=== PATIENT | male | born 1975 | race Caucasian/White ===

== ENCOUNTER 2017-06-28 18:23 | Inpatient (IN) | payer OTHER ==
[~2017-06-28] VITALS: Ht 182.9 cm; Wt 166.3 kg
[~2017-06-28 18:23] MED LIST: CEPH500C2 PO; KPP/750 PO; MULT-506 PO
[2017-06-28] MEDS ORDERED: ONDANSETRON INJ 2 MG/ML 2 ML VIAL IV STA (18:25)
[2017-06-28] MEDS ORDERED: CEFTRIAXONE SOD INJ 1 GM ADDVIAL IV STA (18:25)
[2017-06-28] MEDS ORDERED: VANCOMYCIN 1GM/270ML NSS IV STA (18:25)
[2017-06-28] MEDS ORDERED: HYDROmorphone INJ 1 MG/ML SYR IV STA (18:25)
[2017-06-28] MEDS ORDERED: KETOROLAC TROMETHAMINE 30 MG/ML VIAL IV STA (18:25)
[2017-06-28 19:23] LABS: BASO % 0.2 %; BASO ABS # 0.02 K/uL (0-0.2); COMPLETE YES; EOS % 1.8 %; HEMATOCRIT 46.2 % (42-52); IG% 0.3 %; LYMPH % 17.8 %; LYMPH ABS # 2.06 K/uL (1.2-3.4); MEAN CELL VOLUME 88.8 fL (80-100); MEAN CORPUSCULAR HEMOGLOBIN 30.8 pg (25-34); MEAN CORPUSCULAR HGB CONC 34.6 g/dl (32-36); MEAN PLATELET VOLUME 9.5 fL (7.4-10.4); MONO % 8.4 %; NEUT % 71.5 %; PLATELET COUNT 196 K/uL (130-400); WHITE BLOOD COUNT 11.55 K/uL (4.8-10.8)
[2017-06-28 19:23] LABS: ISTAT CREATININE 1.2 mg/dl (0.6-1.3); ISTAT HEMOGLOBIN 16.7 g/dl (14.0-18.0); ISTAT IONIZED CALCIUM 1.13 mmol/l (1.12-1.32)
[2017-06-28] MEDS ORDERED: OPTIRAY 320 IV PRN (19:30)
[2017-06-28 19:46] LABS: BUN/CREATININE RATIO 13.5 (10-20); CALCIUM 8.9 mg/dl (8.5-10.1); CREATININE 1.22 mg/dl (0.60-1.40); POTASSIUM 3.7 mmol/L (3.5-5.1)
--- NOTE | 2017-06-28 19:56 | EMERGENCY ROOM VISIT NOTE ---
History Report prepared by Alejandro: Mone Abreu Under the Supervision of: Dr. Milan Sierra M.D. First contact with patient: 18:25 Chief Complaint: LEG PAIN,LEG INJURY Stated Complaint: LEG PAIN History of Present Illness The patient is a 42 year old male who presents to the Emergency Room with complaints of worsening leg pain starting 2 days ago. The patient states that he was seen in the ED 2 days ago and was started on Keflex. The patient complains of that it has moved from his calf into his thigh. He notes that that pain is worse while walking. The patient states that it is swelling and is warm to the touch. He reports that it is the absolute worse when he touches it. The patient complains of a rash. Source of History: patient Onset: 2 days ago Position: leg Quality: other (swollen) Timing: worsening Modifying Factors (Worsening): other (walking) Associated Symptoms: + rash Review of Systems See HPI for pertinent positives & negatives. A total of 10 systems reviewed and were otherwise negative. Past Medical & Surgical Medical Problems: (1) High cholesterol (2) Seizure disorder (3) Superficial thrombophlebitis Family History Heart disease Hypertension Social History Smoking Status: Never Smoker Drug Use: none Marital Status: Housing Status: lives with family Occupation Status: employed Current/Historical Medications Scheduled Cephalexin Monohydrate (Keflex), 500 MG PO QID Levetiracetam (Keppra), 750 MG PO BID Multivitamin (Multivitamin), 1 TAB PO DAILY Allergies Coded Allergies: Phenytoin (Verified Allergy, Intermediate, HIVES, 06/28/17) Amoxicillin (Verified Allergy, Mild, unsure, 06/28/17) Erythromycin (Verified Allergy, Unknown, hives, 06/28/17) Sulfa Antibiotics (Verified Allergy, Unknown, hives, 06/28/17) Zonisamide (Unverified Allergy, Unknown, HIVES, 06/28/17) Physical Exam Vital Signs Date Time Temp Pulse Resp B/P (MAP) Pulse Ox O2 Delivery O2 Flow Rate FiO2 06/28/17 21:40 Room Air 06/28/17 21:19 86 18 113/65 95 Room Air 06/28/17 20:11 93 16 133/77 94 Room Air 06/28/17 19:17 100 06/28/17 18:41 36.7 100 20 140/86 94 Room Air Physical Exam GENERAL: Patient is a healthy-appearing well-nourished HEAD: Normocephalic atraumatic EYES: Ocular movements intact pupils equal and react to light OROPHARYNX mucous membranes are moist no exudates present no erythema or edema present NECK: Supple no nuchal rigidity CHEST: Good equal expansion LUNGS: Clear and equal to auscultation CARDIAC: Normal S1 and S2 ABDOMEN: Soft nontender no guarding BACK: No CVA tenderness EXTREMITIES: No pain upon palpation normal muscle strength in all groups no clubbing or cyanosis. Area of cellulitis extending up the left medial aspect of the thigh. NEURO: Patient is following commands and answering questions appropriately. Alert and oriented x3 Cranial Nerves 2-12 grossly intact Medical Decision & Procedures ER Provider Diagnostic Interpretation: Radiology results as stated below per my review and radiologist interpretation: CHEST CTA for PULMONARY ARTERIES CT DOSE: 717.52 mGy.cm HISTORY: Hypoxia. Tachycardia. TECHNIQUE: Multiaxial CT images of the chest were performed following the intravenous administration of contrast to evaluate the pulmonary arteries. Maximal intensity projection images were also obtained. A dose lowering technique was utilized adhering to the principles of ALARA. COMPARISON STUDY: Chest 06/26/2017. FINDINGS: There is a normal caliber thoracic aorta with no evidence for dissection. Suboptimal opacification of the bilateral lower lobe segmental and subsegmental pulmonary arteries. However, no definite evidence for filling defects to suggest pulmonary embolus. Hepatic steatosis. The visualized spleen and adrenal glands are unremarkable. No mediastinal or hilar lymphadenopathy. The central airways are patent. No focal lung consolidations to suggest pneumonia. Mild nodular thickening along the right major fissure on images 139 through 135. IMPRESSION: No definite evidence for pulmonary embolus. Electronically signed by: Eber Moulton M.D. 06/28/2017 8:25 PM Dictated Date/Time: 06/28/2017 8:13 PM LEFT LOWER EXTREMITY VENOUS DOPPLER HISTORY: Left leg swelling. COMPARISON STUDY: Left leg venous Doppler 06/26/2017. FINDINGS: No change in the thrombosis throughout the greater saphenous vein. No DVT identified within the left lower extremity. IMPRESSION: No DVT within the left lower extremity. No change in the thrombosed greater saphenous vein. Electronically signed by: Eber Moulton M.D. 06/28/2017 8:13 PM Dictated Date/Time: 06/28/2017 8:11 PM Laboratory Results Test 06/28/17 18:54 06/28/17 19:07 06/28/17 19:08 Immature Granulocyte % (Auto) 0.3 % White Blood Count 11.55 K/uL (4.8-10.8) Red Blood Count 5.20 M/uL (4.7-6.1) Hemoglobin 16.0 g/dL (14.0-18.0) Hematocrit 46.2 % (42-52) Mean Corpuscular Volume 88.8 fL (80-100) Mean Corpuscular Hemoglobin 30.8 pg (25-34) Mean Corpuscular Hemoglobin Concent 34.6 g/dl (32-36) Platelet Count 196 K/uL (130-400) Mean Platelet Volume 9.5 fL (7.4-10.4) Neutrophils (%) (Auto) 71.5 % Lymphocytes (%) (Auto) 17.8 % Monocytes (%) (Auto) 8.4 % Eosinophils (%) (Auto) 1.8 % Basophils (%) (Auto) 0.2 % Neutrophils # (Auto) 8.26 K/uL (1.4-6.5) Lymphocytes # (Auto) 2.06 K/uL (1.2-3.4) Monocytes # (Auto) 0.97 K/uL (0.11-0.59) Eosinophils # (Auto) 0.21 K/uL (0-0.5) Basophils # (Auto) 0.02 K/uL (0-0.2) Immature Granulocyte # (Auto) 0.03 K/uL (0.00-0.02) Bedside D-Dimer > 450 ng/mlFEU (0-450) Bedside Hemoglobin 16.7 g/dl (14.0-18.0) Bedside Hematocrit 49 % (42-52) Bedside Sodium 139 mEq/L (135-144) Bedside Potassium 3.8 mEq/L (3.3-5.0) Bedside Chloride 101 mEq/L (101-112) Bedside Total CO2 27 mEq/l (24-31) Bedside Blood Urea Nitrogen 18 mg/dl (7-18) Bedside Creatinine 1.2 mg/dl (0.6-1.3) Bedside Glucose (other) 90 mg/dl (70-99) Bedside Ionized Calcium (Juan) 1.13 mmol/l (1.12-1.32) Labs reviewed by ED physician. Medications Administered Medications (Trade) Dose Ordered Sig/Julien Route Start Time Stop Time Status Last Admin Dose Admin Ceftriaxone Sodium (Rocephin Inj) 1 gm NOW STAT IV 06/28/17 18:25 06/28/17 18:29 DC 06/28/17 19:07 1 GM Vancomycin HCl (Vancomycin 1gm/ 270ml Nss) 1 gm NOW STAT IV 06/28/17 18:25 06/28/17 18:29 DC 06/28/17 20:10 1 GM Ketorolac Tromethamine (Toradol Inj) 30 mg NOW STAT IV 06/28/17 18:25 06/28/17 18:29 DC 06/28/17 19:07 30 MG Ondansetron HCl (Zofran Inj) 4 mg NOW STAT IV 06/28/17 18:25 06/28/17 18:29 DC 06/28/17 19:07 4 MG Hydromorphone HCl (Dilaudid Inj) 1 mg NOW STAT IV 06/28/17 18:25 06/28/17 18:29 DC 06/28/17 19:25 1 MG ECG Indication: tachycardia Rate (beats per minute): 103 Rhythm: sinus tachycardia Findings: no acute ischemic change, no ectopy ED Course 1823: Past medical records reviewed. The patient was evaluated in room B7. A complete history and physical examination was performed. 1824: Ordered Dilaudid Inj 1 mg IV, Zofran Inj 4 mg IV, Toradol Inj 30 mg IV, Vancomycin HCl 1 gm IV, Rocephin Inj 1 gm IV. 2030: I reevaluated the patient and he is resting comfortably. 2031: I discussed the patient's case with Dr. Hay, he has agreed to evaluate the patient for further management and care. Medical Decision Etiologies such as cellulitis, abscess, MRSA infection, DVT, necrotizing fasciitis, dermatitis, drug eruption, as well as others were entertained. This is a 42-year-old male who presents emergency department complaining of increasing leg pain. Patient was recently diagnosed with cellulitis and was started on Keflex however the rash has remarkably spread. Patient also has a history of thrombophlebitis. For this reason an IV was established, the patient given Toradol, Dilaudid. He was hydrated with oral fluids due to a shortage of normal saline solution. He was started on Rocephin and vancomycin. Repeat examination revealed improvement the patient's pain. Patient was sent for an ultrasound which did not show any evidence of DVT. In addition the patient was sent for CAT scan of the chest which did not show any evidence of a blood clot. Based on these findings along with the fact that the patient's white blood count cell count dramatically increased I felt he should be admitted to the hospital. I did discuss the case with the hospitalist service who agreed to admit the patient. Patient was in agreement with the treatment plan. Medication Reconcilliation Current Medication List: was personally reviewed by me Blood Pressure Screening Patient's blood pressure: Normal blood pressure Blood pressure disposition: Did not require urgent referral Consults Time Called: 2027 Consulting Physician: Dr. Hay Returned Call: 2031 I discussed the patient's case with Dr. Hay, he has agreed to evaluate the patient for further management and care. Impression Primary Impression: Cellulitis Scribe Attestation The scribe's documentation has been prepared under my direction and personally reviewed by me in its entirety. I confirm that the note above accurately reflects all work, treatment, procedures, and medical decision making performed by me. Departure Information Dispostion Being Evaluated By Hospitalist Referrals Lanre Mayorga M.D. (PCP) Patient Instructions My [facility] Problem Qualifiers Primary Impression: Cellulitis Site of cellulitis: extremity Site of cellulitis of extremity: lower extremity Laterality: left Qualified Codes: L03.116 - Cellulitis of left lower limb
--- NOTE | 2017-06-28 20:14 | DIAGNOSTIC IMAGING REPORT ---
LEFT LOWER EXTREMITY VENOUS DOPPLER HISTORY: Left leg swelling. COMPARISON STUDY: Left leg venous Doppler 06/26/2017. FINDINGS: No change in the thrombosis throughout the greater saphenous vein. No DVT identified within the left lower extremity. IMPRESSION: No DVT within the left lower extremity. No change in the thrombosed greater saphenous vein. Electronically signed by: Eber Moulton M.D. 06/28/2017 8:13 PM Dictated Date/Time: 06/28/2017 8:11 PM
--- NOTE | 2017-06-28 20:27 | DIAGNOSTIC IMAGING REPORT ---
CHEST CTA for PULMONARY ARTERIES CT DOSE: 717.52 mGy.cm HISTORY: Hypoxia. Tachycardia. TECHNIQUE: Multiaxial CT images of the chest were performed following the intravenous administration of contrast to evaluate the pulmonary arteries. Maximal intensity projection images were also obtained. A dose lowering technique was utilized adhering to the principles of ALARA. COMPARISON STUDY: Chest 06/26/2017. FINDINGS: There is a normal caliber thoracic aorta with no evidence for dissection. Suboptimal opacification of the bilateral lower lobe segmental and subsegmental pulmonary arteries. However, no definite evidence for filling defects to suggest pulmonary embolus. Hepatic steatosis. The visualized spleen and adrenal glands are unremarkable. No mediastinal or hilar lymphadenopathy. The central airways are patent. No focal lung consolidations to suggest pneumonia. Mild nodular thickening along the right major fissure on images 139 through 135. IMPRESSION: No definite evidence for pulmonary embolus. Electronically signed by: Eber Moulton M.D. 06/28/2017 8:25 PM Dictated Date/Time: 06/28/2017 8:13 PM
[2017-06-28 21:40] VITALS: Ht 182.9 cm; Wt 166.3 kg
[2017-06-28] MEDS ORDERED: ALUMINUM/MAGNESIUM/SIMETH (MAALOX MAX) 30 ML UDC PO PRN (22:00)
[2017-06-28] MEDS ORDERED: ACETAMINOPHEN 325 MG TAB PO PRN (22:00)
[2017-06-28] MEDS ORDERED: VANCOMYCIN CONSULT ACTIVE PRN (22:15)
[2017-06-28] MEDS ORDERED: KETOROLAC TROMETHAMINE 30 MG/ML VIAL IV PRN (22:45)
--- NOTE | 2017-06-28 22:45 | History and Physical ---
History & Physical Date & Time of Service: Jun 28, 2017 at 22:21 Chief Complaint: Leg Pain Primary Care Physician: Lanre Mayorga M.D. History of Present Illness Source: patient, family, hospital records This is a 42 year old male with a PMH of seizure disorder, varicose veins s/p stripping, recurrent phlebitis in the lower extremities presents secondary to severe LLE pain in the upper, medial thigh - he was at [facility] at 06/25 and 06/26 - at that time was diagnosed with superficial thrombophlebitis and cellulitis and was sent home with Keflex. States that the pain and the redness worsened. It has now spread throughout his medial thigh and there is significant pain to touch. Denies fevers/chills, denies nausea/vomiting, denies all other symptoms. Past Medical/Surgical History Medical Problems: (1) Seizure disorder Status: Chronic (2) Superficial thrombophlebitis Status: Chronic Family History Heart disease Hypertension Social History Smoking Status: Never Smoker Drug Use: none Marital Status: Occupational Status: employed Multi-Drug Resistant Organisms History of MDRO: No Allergies Coded Allergies: Phenytoin (Verified Allergy, Intermediate, HIVES, 06/28/17) Amoxicillin (Verified Allergy, Mild, unsure, 06/28/17) Erythromycin (Verified Allergy, Unknown, hives, 06/28/17) Sulfa Antibiotics (Verified Allergy, Unknown, hives, 06/28/17) Zonisamide (Unverified Allergy, Unknown, HIVES, 06/28/17) Home Medications Scheduled Cephalexin Monohydrate (Keflex), 500 MG PO QID Levetiracetam (Keppra), 750 MG PO BID Multivitamin (Multivitamin), 1 TAB PO DAILY Review of Systems Constitutional: No fever, No chills Eyes: No worsening of vision ENT: No hearing loss Respiratory: No cough, No sputum, No wheezing, No shortness of breath, No dyspnea on exertion, No dyspnea at rest, No hemoptysis Cardiovascular: No chest pain, No orthopnea Abdomen: No pain, No nausea, No vomiting, No diarrhea, No constipation, No GI bleeding Musculoskeletal: No joint pain, No muscle pain Genitourinary - Male: No hematuria, No dysuria, No urinary frequency, No urinary urgency Neurologic: No memory loss, No paralysis, No weakness, No numbness/tingling, No vertigo Psychiatric: No insomnia Endocrine: No fatigue Hematologic / Lymphatic: No abnormal bleeding/bruising Integumentary: + new/changing skin lesions (redness spread to thigh) Allergic / Immunologic: No environmental allergies, No seasonal allergies Physical Exam Vital Signs Date Time Temp Pulse Resp B/P (MAP) Pulse Ox O2 Delivery O2 Flow Rate FiO2 06/28/17 21:40 Room Air 06/28/17 21:19 86 18 113/65 95 Room Air 06/28/17 20:11 93 16 133/77 94 Room Air 06/28/17 19:17 100 06/28/17 18:41 36.7 100 20 140/86 94 Room Air General Appearance: WD/WN, no apparent distress, + obese Head: normocephalic, atraumatic Eyes: normal inspection ENT: hearing grossly normal Respiratory/Chest: chest non-tender, lungs clear, normal breath sounds, no respiratory distress, no accessory muscle use Cardiovascular: regular rate, rhythm, no edema, no murmur Abdomen/GI: normal bowel sounds, non tender, soft, no organomegaly Back: no CVA tenderness, no muscle spasm Extremities/Musculoskelatal: + swelling, + pertinent finding (+swelling, significant erythema, warmth to touch, tenderness to palpation) Neurologic/Psych: no motor/sensory deficits, alert, normal mood/affect Skin: normal color Lymphatic: no adenopathy Diagnostics Laboratory Results Results Past 24 Hours Test 06/28/17 18:54 06/28/17 19:07 06/28/17 19:08 Range/Units White Blood Count 11.55 4.8-10.8 K/uL Red Blood Count 5.20 4.7-6.1 M/uL Hemoglobin 16.0 14.0-18.0 g/dL Hematocrit 46.2 42-52 % Mean Corpuscular Volume 88.8 80-100 fL Mean Corpuscular Hemoglobin 30.8 25-34 pg Mean Corpuscular Hemoglobin Concent 34.6 32-36 g/dl Platelet Count 196 130-400 K/uL Mean Platelet Volume 9.5 7.4-10.4 fL Neutrophils (%) (Auto) 71.5 % Lymphocytes (%) (Auto) 17.8 % Monocytes (%) (Auto) 8.4 % Eosinophils (%) (Auto) 1.8 % Basophils (%) (Auto) 0.2 % Neutrophils # (Auto) 8.26 1.4-6.5 K/uL Lymphocytes # (Auto) 2.06 1.2-3.4 K/uL Monocytes # (Auto) 0.97 0.11-0.59 K/uL Eosinophils # (Auto) 0.21 0-0.5 K/uL Basophils # (Auto) 0.02 0-0.2 K/uL RDW Standard Deviation 42.3 36.4-46.3 fL RDW Coefficient of Variation 13.1 11.5-14.5 % Immature Granulocyte % (Auto) 0.3 % Immature Granulocyte # (Auto) 0.03 0.00-0.02 K/uL Sodium Level 138 136-145 mmol/L Potassium Level 3.7 3.5-5.1 mmol/L Chloride Level 103 98-107 mmol/L Carbon Dioxide Level 29 21-32 mmol/L Anion Gap 6.0 16.0 16-25 mmol/L Blood Urea Nitrogen 17 7-18 mg/dl Creatinine 1.22 0.60-1.40 mg/dl Est Creatinine Clear Calc Drug Dose 125.8 ml/min Estimated GFR () 84.2 Estimated GFR (Non- 72.7 BUN/Creatinine Ratio 13.5 10-20 Random Glucose 86 70-99 mg/dl Calcium Level 8.9 8.5-10.1 mg/dl Bedside D-Dimer > 450 0-450 ng/mlFEU Bedside Hemoglobin 16.7 14.0-18.0 g/dl Bedside Hematocrit 49 42-52 % Bedside Sodium 139 135-144 mEq/L Bedside Potassium 3.8 3.3-5.0 mEq/L Bedside Chloride 101 101-112 mEq/L Bedside Total CO2 27 24-31 mEq/l Bedside Blood Urea Nitrogen 18 7-18 mg/dl Bedside Creatinine 1.2 0.6-1.3 mg/dl Bedside Glucose (other) 90 70-99 mg/dl Bedside Ionized Calcium (Juan) 1.13 1.12-1.32 mmol/l Microbiology Results 06/28/17 Blood Culture, Received Pending 06/28/17 Blood Culture, Received Pending Diagnostic Radiology LEFT LOWER EXTREMITY VENOUS DOPPLER HISTORY: Left leg swelling. COMPARISON STUDY: Left leg venous Doppler 06/26/2017. FINDINGS: No change in the thrombosis throughout the greater saphenous vein. No DVT identified within the left lower extremity. IMPRESSION: No DVT within the left lower extremity. No change in the thrombosed greater saphenous vein. CHEST CTA for PULMONARY ARTERIES CT DOSE: 717.52 mGy.cm HISTORY: Hypoxia. Tachycardia. TECHNIQUE: Multiaxial CT images of the chest were performed following the intravenous administration of contrast to evaluate the pulmonary arteries. Maximal intensity projection images were also obtained. A dose lowering technique was utilized adhering to the principles of ALARA. COMPARISON STUDY: Chest 06/26/2017. FINDINGS: There is a normal caliber thoracic aorta with no evidence for dissection. Suboptimal opacification of the bilateral lower lobe segmental and subsegmental pulmonary arteries. However, no definite evidence for filling defects to suggest pulmonary embolus. Hepatic steatosis. The visualized spleen and adrenal glands are unremarkable. No mediastinal or hilar lymphadenopathy. The central airways are patent. No focal lung consolidations to suggest pneumonia. Mild nodular thickening along the right major fissure on images 139 through 135. IMPRESSION: No definite evidence for pulmonary embolus. EKG Sinus tachycardia Otherwise normal ECG Impression Assessment and Plan This is a 42 year old male with a PMH of seizure disorder, varicose veins s/p stripping, recurrent phlebitis in the lower extremities presents with acute superficial thrombophlebitis and cellulitis Acute Superficial Thrombophlebitis Cellulitis LLE U/S - superficial thrombophlebitis in the greater saphenous vein mild elevation in WBC was on Keflex since 06/25 but failed outpatient therapy will start IV Vancomycin Toradol PRN for pain monitor status for now, no anticoagulation needed; may need repeat U/S in 7-10 days Hx. of Seizure Disorder continue Keppra DVT ppx Lovenox FULL CODE Advanced Directives Existing Living Will: No Existing Power of Senior Software Project Manager: No VTE Prophylaxis VTE Risk Assessment Done? Y/N: Yes Risk Level: Moderate
[2017-06-28 23:25] VITALS: BP 150/92; PULSE 96; TEMP 36.8; O2SAT 90
[2017-06-29] MEDS ORDERED: VANCOMYCIN INJ 2,000 MG in SODIUM CHLORIDE 0.9% 500ML 500 ML IV ONE (03:00)
[2017-06-29 06:22] LABS: HEMATOCRIT 40.7 % (42-52); MEAN CORPUSCULAR HEMOGLOBIN 31.4 pg (25-34); MEAN CORPUSCULAR HGB CONC 34.9 g/dl (32-36); MEAN PLATELET VOLUME 9.6 fL (7.4-10.4); PLATELET COUNT 162 K/uL (130-400); RED BLOOD COUNT 4.52 M/uL (4.7-6.1); WHITE BLOOD COUNT 8.81 K/uL (4.8-10.8)
[2017-06-29 07:07] LABS: BUN/CREATININE RATIO 18.8 (10-20); CREATININE 1.2 mg/dl (0.60-1.40); POTASSIUM 4.4 mmol/L (3.5-5.1)
[2017-06-29] MEDS ORDERED: LEVETIRACETAM 250 MG TAB PO SCH (08:00)
[2017-06-29 08:08] VITALS: BP 157/84; PULSE 83; TEMP 36.6; O2SAT 94
[2017-06-29 08:41] LABS: PROTHROMBIN TIME (PATIENT) 10.2 SECONDS (9.0-12.0)
--- NOTE | 2017-06-29 10:17 | Pharmacy Progress Note ---
Pharmacy Abx Dose Short Note Date of Service Jun 29, 2017. Assessment & Plan Assessment 42 year old male receiving VANC-IV for treatment of thigh cellulitis. Failed out-pt Keflex (since ED visit 06/25). PMH: recurrent phlebitis * Day # 1 of antimicrobial therapy. Plan Vancomycin * Pt is morbidly obese (BMI 49.5), will need to utilize decreased mg/kg dosing to offset potential to accumulate over time. * Estimated p'kinetics: Ke~0.104hr-1, T1/2~7 hours * "Loading dose": Vanc-IV 1 gram + 2 gram (~18mg/kg) * Maintenance Dose: VANC 1750mg (~10mg/kg) IV every 10 hours * Goal trough level: 10 to 15 mcg/mL, pending C&S * VANC Trough level prior to 06/30 0800 dose Pharmacy will continue to follow and will adjust dose/frequency as necessary. Thank you.
[2017-06-29] MEDS: ENOXAPARIN 40 MG/0.4 ML SYR SQ SCH ×2 (11:38→12:19)
[2017-06-29] MEDS: VANCOMYCIN INJ 1,750 MG in SODIUM CHLORIDE 0.9% 500ML 500 ML IV SCH ×2 (12:17→22:03)
--- NOTE | 2017-06-29 14:58 | Progress Note ---
Internal Med Progress Note Date of Service: Jun 29, 2017. Provider Documentation: SUBJECTIVE: Seen and examined at bedside Persistent LLE thigh pain LLE erythema improving Denies chest pain, SOB, abd pain, dizziness Family at bedside No other complaints OBJECTIVE: Vital Signs-as noted below Physical Exam: General Appearance:Obese, no apparent distress Head: normocephalic, Atraumatic Eyes: normal inspection, EOMI, PERRL Neck: supple, Trachea midline Respiratory/Chest: Normal breath sounds, CTA Cardiovascular: S1, S2, No murmur Abdomen/GI:Soft, Non tender, Bowel sounds present Extremities/Musculoskelatal:normal inspection, L thigh erythema, tender Neurologic/Psych:AAOX3, grossly no focal neurological deficits Skin: normal color, warm Lab data as noted below. ASSESSMENT & PLAN: Patient is a 42 yr male with a PMH of seizure disorder, varicose veins s/p stripping, recurrent phlebitis in the lower extremities presents with acute superficial thrombophlebitis and cellulitis Acute Superficial Thrombophlebitis Cellulitis H/O Varicose vein stripping and recurrent phlebitis since 2011 LLE U/S: No DVT within the left lower extremity. No change in the thrombosed greater saphenous vein. Leukocytosis normalized Was on Keflex since 06/25 but failed outpatient therapy Continue IV Vancomycin Toradol PRN for pain Blood cultures: Pending monitor leg circumference, erythema Discussed with Dr. andrew (Oncology) No plan for anticoagulation for now Plan to repeat Venous Doppler in 7-10 days Hx. of Seizure Disorder continue Keppra Stable DVT px Lovenox Code Status: FULL CODE Disposition: Plan to discharge home when stable Vital Signs: Date Time Temp Pulse Resp B/P (MAP) Pulse Ox O2 Delivery O2 Flow Rate FiO2 06/29/17 15:00 36.3 89 22 135/86 (102) 95 Room Air 06/29/17 11:45 Room Air 06/29/17 09:08 Room Air 06/29/17 08:08 36.6 83 22 157/84 (108) 94 Room Air 06/29/17 00:00 Room Air 06/28/17 23:25 36.8 96 18 150/92 (111) 90 Room Air 06/28/17 22:43 94 18 125/64 91 Room Air 06/28/17 21:40 Room Air 06/28/17 21:19 86 18 113/65 95 Room Air 06/28/17 20:11 93 16 133/77 94 Room Air 06/28/17 19:17 100 06/28/17 18:41 36.7 100 20 140/86 94 Room Air Lab Results: Results Past 24 Hours Test 06/28/17 18:54 06/28/17 19:07 06/28/17 19:08 06/29/17 06:13 Range/Units White Blood Count 11.55 8.81 4.8-10.8 K/uL Red Blood Count 5.20 4.52 4.7-6.1 M/uL Hemoglobin 16.0 14.2 14.0-18.0 g/dL Hematocrit 46.2 40.7 42-52 % Mean Corpuscular Volume 88.8 90.0 80-100 fL Mean Corpuscular Hemoglobin 30.8 31.4 25-34 pg Mean Corpuscular Hemoglobin Concent 34.6 34.9 32-36 g/dl Platelet Count 196 162 130-400 K/uL Mean Platelet Volume 9.5 9.6 7.4-10.4 fL Neutrophils (%) (Auto) 71.5 % Lymphocytes (%) (Auto) 17.8 % Monocytes (%) (Auto) 8.4 % Eosinophils (%) (Auto) 1.8 % Basophils (%) (Auto) 0.2 % Neutrophils # (Auto) 8.26 1.4-6.5 K/uL Lymphocytes # (Auto) 2.06 1.2-3.4 K/uL Monocytes # (Auto) 0.97 0.11-0.59 K/uL Eosinophils # (Auto) 0.21 0-0.5 K/uL Basophils # (Auto) 0.02 0-0.2 K/uL RDW Standard Deviation 42.3 42.7 36.4-46.3 fL RDW Coefficient of Variation 13.1 13.0 11.5-14.5 % Immature Granulocyte % (Auto) 0.3 % Immature Granulocyte # (Auto) 0.03 0.00-0.02 K/uL Sodium Level 138 141 136-145 mmol/L Potassium Level 3.7 4.4 3.5-5.1 mmol/L Chloride Level 103 106 98-107 mmol/L Carbon Dioxide Level 29 28 21-32 mmol/L Anion Gap 6.0 16.0 7.0 3-11 mmol/L Blood Urea Nitrogen 17 23 7-18 mg/dl Creatinine 1.22 1.20 0.60-1.40 mg/dl Est Creatinine Clear Calc Drug Dose 125.8 127.9 ml/min Estimated GFR () 84.2 85.9 Estimated GFR (Non- 72.7 74.1 BUN/Creatinine Ratio 13.5 18.8 10-20 Random Glucose 86 111 70-99 mg/dl Calcium Level 8.9 8.0 8.5-10.1 mg/dl Bedside D-Dimer > 450 0-450 ng/mlFEU Bedside Hemoglobin 16.7 14.0-18.0 g/dl Bedside Hematocrit 49 42-52 % Bedside Sodium 139 135-144 mEq/L Bedside Potassium 3.8 3.3-5.0 mEq/L Bedside Chloride 101 101-112 mEq/L Bedside Total CO2 27 24-31 mEq/l Bedside Blood Urea Nitrogen 18 7-18 mg/dl Bedside Creatinine 1.2 0.6-1.3 mg/dl Bedside Glucose (other) 90 70-99 mg/dl Bedside Ionized Calcium (Juan) 1.13 1.12-1.32 mmol/l Test 06/29/17 08:07 Range/Units Prothrombin Time 10.2 9.0-12.0 SECONDS Prothromb Time International Ratio 1.0 0.9-1.1 Microbiology Results 06/28/17 Blood Culture, Received Pending 06/28/17 Blood Culture, Received Pending
[2017-06-29 15:00] VITALS: BP 135/86; PULSE 89; TEMP 36.3; O2SAT 95
[2017-06-29 23:00] VITALS: BP 123/76; PULSE 84; TEMP 36.7; O2SAT 95
[2017-06-29] MEDS: LEVETIRACETAM 750 MG PO SCH (23:27)
[2017-06-30] MEDS ORDERED: VANCOMYCIN TROUGH ONE (07:30)
[2017-06-30 07:53] LABS: HEMATOCRIT 44.6 % (42-52); MEAN CELL VOLUME 89.4 fL (80-100); MEAN CORPUSCULAR HEMOGLOBIN 30.9 pg (25-34); MEAN CORPUSCULAR HGB CONC 34.5 g/dl (32-36); MEAN PLATELET VOLUME 9.7 fL (7.4-10.4); PLATELET COUNT 180 K/uL (130-400); RED BLOOD COUNT 4.99 M/uL (4.7-6.1); WHITE BLOOD COUNT 6.88 K/uL (4.8-10.8)
[2017-06-30] MEDS ORDERED: LEVETIRACETAM 750 MG PO SCH (08:00)
[2017-06-30 08:01] VITALS: BP 124/82; PULSE 83; TEMP 36.6; O2SAT 97
[2017-06-30 08:22] LABS: BUN/CREATININE RATIO 15.9 (10-20); CALCIUM 8.4 mg/dl (8.5-10.1); CREATININE 0.96 mg/dl (0.60-1.40); POTASSIUM 4.3 mmol/L (3.5-5.1)
--- NOTE | 2017-06-30 08:43 | Pharmacy Progress Note ---
Pharmacy Abx Dose Short Note Date of Service Jun 30, 2017. Assessment & Plan Today's trough (prior to Css) came back therapeutic at 12.3mcg/mL for cellulitis. Trough was drawn appropriately. Given Mr. Jha's habitus there is a concern for vancomycin accumulation. His renal fxn improved overnight. He is still afebrile, nil leukocytosis. Will continue with current regimen and check trough in a few days. Pharmacy will continue to follow and will adjust dose/frequency as necessary. Thank you.
[2017-06-30] MEDS: VANCOMYCIN INJ 1,750 MG in SODIUM CHLORIDE 0.9% 500ML 500 ML IV SCH ×2 (08:45→17:21)
[2017-06-30 10:41] VITALS: O2SAT 97
[2017-06-30] MEDS: ENOXAPARIN 40 MG/0.4 ML SYR SQ SCH (10:50)
[2017-06-30 11:32] VITALS: BP 141/89; PULSE 73; TEMP 36.5; O2SAT 95
[2017-06-30] MEDS: LEVETIRACETAM 750 MG PO SCH (12:32)
--- NOTE | 2017-06-30 14:56 | Progress Note ---
Internal Med Progress Note Date of Service: Jun 30, 2017. Provider Documentation: SUBJECTIVE: Seen and examined at bedside No change in LLE thigh pain LLE erythema slowly improving Denies chest pain, SOB, abd pain, dizziness Family at bedside No other complaints OBJECTIVE: Vital Signs-as noted below Physical Exam: General Appearance:Obese, no apparent distress Head: normocephalic, Atraumatic Eyes: normal inspection, EOMI, PERRL Neck: supple, Trachea midline Respiratory/Chest: Normal breath sounds, CTA Cardiovascular: S1, S2, No murmur Abdomen/GI:Soft, Non tender, Bowel sounds present Extremities/Musculoskelatal:normal inspection, L thigh erythema, tender Neurologic/Psych:AAOX3, grossly no focal neurological deficits Skin: normal color, warm Lab data as noted below. ASSESSMENT & PLAN: Patient is a 42 yr male with a PMH of seizure disorder, varicose veins s/p stripping, recurrent phlebitis in the lower extremities presents with acute superficial thrombophlebitis and cellulitis Acute Superficial Thrombophlebitis Cellulitis H/O Varicose vein stripping and recurrent phlebitis since 2011 LLE U/S: No DVT within the left lower extremity. No change in the thrombosed greater saphenous vein. Leukocytosis normalized Was on Keflex since 06/25 but failed outpatient therapy Continue IV Vancomycin Toradol PRN for pain Blood cultures: No growth to date monitor leg circumference, erythema Warm compress Discussed with Dr. andrew (Oncology) Discussed with Vascular Surgery: Recommended anticoagulation Start on IV heparin and Coumadin Monitor INR Hx. of Seizure Disorder continue Keppra Stable DVT px Lovenox Code Status: FULL CODE Disposition: Plan to discharge home when stable Vital Signs: Date Time Temp Pulse Resp B/P (MAP) Pulse Ox O2 Delivery O2 Flow Rate FiO2 06/30/17 15:01 36.6 89 20 161/95 (117) 94 Room Air 06/30/17 11:32 36.5 73 20 141/89 (106) 95 Room Air 06/30/17 10:43 Room Air 06/30/17 10:41 97 Room Air 06/30/17 08:01 36.6 83 20 124/82 (96) 97 Room Air 06/30/17 00:01 Room Air 06/29/17 23:00 36.7 84 20 123/76 (92) 95 Room Air 06/29/17 16:00 Room Air Lab Results: Results Past 24 Hours Test 06/30/17 07:36 Range/Units White Blood Count 6.88 4.8-10.8 K/uL Red Blood Count 4.99 4.7-6.1 M/uL Hemoglobin 15.4 14.0-18.0 g/dL Hematocrit 44.6 42-52 % Mean Corpuscular Volume 89.4 80-100 fL Mean Corpuscular Hemoglobin 30.9 25-34 pg Mean Corpuscular Hemoglobin Concent 34.5 32-36 g/dl RDW Standard Deviation 41.6 36.4-46.3 fL RDW Coefficient of Variation 12.9 11.5-14.5 % Platelet Count 180 130-400 K/uL Mean Platelet Volume 9.7 7.4-10.4 fL Sodium Level 140 136-145 mmol/L Potassium Level 4.3 3.5-5.1 mmol/L Chloride Level 108 98-107 mmol/L Carbon Dioxide Level 28 21-32 mmol/L Anion Gap 4.0 3-11 mmol/L Blood Urea Nitrogen 15 7-18 mg/dl Creatinine 0.96 0.60-1.40 mg/dl Est Creatinine Clear Calc Drug Dose 159.9 ml/min Estimated GFR () 112.5 Estimated GFR (Non- 97.1 BUN/Creatinine Ratio 15.9 10-20 Random Glucose 92 70-99 mg/dl Calcium Level 8.4 8.5-10.1 mg/dl Vancomycin Level Trough 12.3 SEE COMMENT mcg/ml
[2017-06-30 15:01] VITALS: BP 161/95; PULSE 89; TEMP 36.6; O2SAT 94
[2017-06-30] MEDS ORDERED: WARFARIN SOD 5 MG TAB PO SCH (16:00)
[2017-06-30] MEDS ORDERED: HEPARIN IV BOLUS 9,000 UNIT in SYRINGE 0 ML IV ONE (16:45)
[2017-06-30 17:05] LABS: PARTIAL THROMBOPLASTIN RATIO 1.1; PROTHROMBIN TIME (PATIENT) 10.2 SECONDS (9.0-12.0)
[2017-06-30] MEDS: HEPARIN 25000 UNIT/ D5W 500 ML (PHARMACY PREPARED) IV PRN ×2 (17:20)
[2017-06-30 23:38] LABS: PARTIAL THROMBOPLASTIN RATIO 1.6
[2017-06-30 23:46] VITALS: BP 138/80; PULSE 95; TEMP 36.5; O2SAT 96
[2017-07-01] VITALS: O2SAT 97
[2017-07-01] MEDS ORDERED: HEPARIN IV BOLUS 9,000 UNIT in SYRINGE 0 ML IV ONE (00:15)
[2017-07-01] MEDS: LEVETIRACETAM 750 MG PO SCH ×2 (00:25→12:40)
[2017-07-01] MEDS: VANCOMYCIN INJ 1,750 MG in SODIUM CHLORIDE 0.9% 500ML 500 ML IV SCH ×2 (04:12→14:17)
[2017-07-01 06:59] LABS: HEMATOCRIT 42.9 % (42-52); MEAN CELL VOLUME 88.8 fL (80-100); MEAN CORPUSCULAR HEMOGLOBIN 31.1 pg (25-34); MEAN PLATELET VOLUME 9.3 fL (7.4-10.4); PLATELET COUNT 186 K/uL (130-400); RED BLOOD COUNT 4.83 M/uL (4.7-6.1); WHITE BLOOD COUNT 8.51 K/uL (4.8-10.8)
[2017-07-01 07:25] LABS: PARTIAL THROMBOPLASTIN RATIO 2.3
[2017-07-01 07:26] LABS: PARTIAL THROMBOPLASTIN RATIO 2.3; PROTHROMBIN TIME (PATIENT) 10.6 SECONDS (9.0-12.0)
[2017-07-01 07:28] LABS: CREATININE 0.99 mg/dl (0.60-1.40)
[2017-07-01 08:02] VITALS: BP 145/76; PULSE 74; TEMP 36.6; O2SAT 93
--- NOTE | 2017-07-01 14:48 | Progress Note ---
Internal Med Progress Note Date of Service: Jul 01, 2017. Provider Documentation: SUBJECTIVE: Seen and examined at bedside Leg Erythema much improved Leg pain unchanged from yesterday Denies chest pain, SOB, abd pain, dizziness Family at bedside No other complaints OBJECTIVE: Vital Signs-as noted below Physical Exam: General Appearance:Obese, no apparent distress Head: normocephalic, Atraumatic Eyes: normal inspection, EOMI, PERRL Neck: supple, Trachea midline Respiratory/Chest: Normal breath sounds, CTA Cardiovascular: S1, S2, No murmur Abdomen/GI:Soft, Non tender, Bowel sounds present Extremities/Musculoskelatal:normal inspection, L thigh erythema improving, tender Neurologic/Psych:AAOX3, grossly no focal neurological deficits Skin: normal color, warm Lab data as noted below. ASSESSMENT & PLAN: Patient is a 42 yr male with a PMH of seizure disorder, varicose veins s/p stripping, recurrent phlebitis in the lower extremities presents with acute superficial thrombophlebitis and cellulitis Acute Superficial Thrombophlebitis Cellulitis H/O Varicose vein stripping and recurrent phlebitis since 2011 LLE U/S: No DVT within the left lower extremity. No change in the thrombosed greater saphenous vein. Leukocytosis normalized Was on Keflex since 06/25 but failed outpatient therapy Continue IV Vancomycin to complete 5 days of therapy Toradol PRN for pain Blood cultures: No growth to date monitor leg circumference, erythema Warm compress Discussed with Dr. andrew (Oncology) Discussed with Vascular Surgery: Recommended anticoagulation Start on IV heparin and Coumadin Monitor INR:1.0 today Will give 7.5 mg coumadin today Hx. of Seizure Disorder continue Keppra Stable DVT px Lovenox Code Status: FULL CODE Disposition: Plan to discharge home when stable Vital Signs: Date Time Temp Pulse Resp B/P (MAP) Pulse Ox O2 Delivery O2 Flow Rate FiO2 07/01/17 10:14 Room Air 07/01/17 08:02 36.6 74 18 145/76 (99) 93 Room Air 07/01/17 00:00 97 Room Air 06/30/17 23:46 36.5 95 20 138/80 (99) 96 Room Air 06/30/17 20:05 Room Air 06/30/17 15:47 Room Air 06/30/17 15:01 36.6 89 20 161/95 (117) 94 Room Air Lab Results: Results Past 24 Hours Test 06/30/17 16:39 06/30/17 23:15 07/01/17 06:43 Range/Units Prothrombin Time 10.2 10.6 9.0-12.0 SECONDS Prothromb Time International Ratio 1.0 1.0 0.9-1.1 Activated Partial Thromboplast Time 28.8 40.6 60.8 21.0-31.0 SECONDS Partial Thromboplastin Ratio 1.1 1.6 2.3 White Blood Count 8.51 4.8-10.8 K/uL Red Blood Count 4.83 4.7-6.1 M/uL Hemoglobin 15.0 14.0-18.0 g/dL Hematocrit 42.9 42-52 % Mean Corpuscular Volume 88.8 80-100 fL Mean Corpuscular Hemoglobin 31.1 25-34 pg Mean Corpuscular Hemoglobin Concent 35.0 32-36 g/dl RDW Standard Deviation 41.9 36.4-46.3 fL RDW Coefficient of Variation 13.1 11.5-14.5 % Platelet Count 186 130-400 K/uL Mean Platelet Volume 9.3 7.4-10.4 fL Creatinine 0.99 0.60-1.40 mg/dl Est Creatinine Clear Calc Drug Dose 155.5 ml/min Estimated GFR () 108.4 Estimated GFR (Non- 93.6
[2017-07-01] MEDS: HEPARIN 25000 UNIT/ D5W 500 ML (PHARMACY PREPARED) IV PRN ×2 (16:00)
[2017-07-01] MEDS ORDERED: WARFARIN SOD 7.5 MG TAB PO SCH (16:00)
[2017-07-01 16:08] VITALS: BP 172/95; PULSE 100; TEMP 36.5; O2SAT 93
[2017-07-02] VITALS: BP 146/99; PULSE 100; TEMP 36.5; O2SAT 97; O2SAT 99
[2017-07-02] MEDS: LEVETIRACETAM 750 MG PO SCH ×2 (00:52→12:00)
[2017-07-02] MEDS: VANCOMYCIN INJ 1,750 MG in SODIUM CHLORIDE 0.9% 500ML 500 ML IV SCH ×3 (00:52→20:14)
[2017-07-02 07:05] LABS: BASO % 0.3 %; BASO ABS # 0.02 K/uL (0-0.2); COMPLETE YES; HEMATOCRIT 43.1 % (42-52); IG% 0.3 %; LYMPH % 27.4 %; LYMPH ABS # 2.03 K/uL (1.2-3.4); MEAN CELL VOLUME 88.3 fL (80-100); MEAN CORPUSCULAR HEMOGLOBIN 30.9 pg (25-34); MEAN PLATELET VOLUME 9.5 fL (7.4-10.4); MONO % 6.9 %; NEUT % 62.1 %; PLATELET COUNT 194 K/uL (130-400); RED BLOOD COUNT 4.88 M/uL (4.7-6.1)
[2017-07-02 07:15] VITALS: BP 137/92; PULSE 87; TEMP 36.6; O2SAT 95
[2017-07-02 07:29] LABS: PARTIAL THROMBOPLASTIN RATIO 1.9; PROTHROMBIN TIME (PATIENT) 10.7 SECONDS (9.0-12.0)
[2017-07-02 07:40] LABS: BUN/CREATININE RATIO 12.3 (10-20); CALCIUM 8.3 mg/dl (8.5-10.1); CREATININE 0.97 mg/dl (0.60-1.40)
[2017-07-02] MEDS: HEPARIN 25000 UNIT/ D5W 500 ML (PHARMACY PREPARED) IV PRN ×6 (11:58→22:48)
--- NOTE | 2017-07-02 15:13 | Progress Note ---
Internal Med Progress Note Date of Service: Jul 02, 2017. Provider Documentation: SUBJECTIVE: Seen and examined at bedside Leg Erythema, pain improving Denies chest pain, SOB, abd pain, dizziness Family at bedside No other complaints OBJECTIVE: Vital Signs-as noted below Physical Exam: General Appearance:Obese, no apparent distress Head: normocephalic, Atraumatic Eyes: normal inspection, EOMI, PERRL Neck: supple, Trachea midline Respiratory/Chest: Normal breath sounds, CTA Cardiovascular: S1, S2, No murmur Abdomen/GI:Soft, Non tender, Bowel sounds present Extremities/Musculoskelatal:normal inspection, L thigh erythema improving, tender Neurologic/Psych:AAOX3, grossly no focal neurological deficits Skin: normal color, warm Lab data as noted below. ASSESSMENT & PLAN: Patient is a 42 yr male with a PMH of seizure disorder, varicose veins s/p stripping, recurrent phlebitis in the lower extremities presents with acute superficial thrombophlebitis and cellulitis Acute Superficial Thrombophlebitis Cellulitis H/O Varicose vein stripping and recurrent phlebitis since 2011 LLE U/S: No DVT within the left lower extremity. No change in the thrombosed greater saphenous vein. Leukocytosis normalized Was on Keflex since 06/25 but failed outpatient therapy Completed IV Vancomycin 5 days of therapy Toradol PRN for pain Blood cultures: No growth to date monitor leg circumference, erythema Warm compress Discussed with Dr. andrew (Oncology) Discussed with Vascular Surgery: Recommended anticoagulation Continue IV heparin and Coumadin Monitor INR:1.0 today Will give 10 mg coumadin today Hx. of Seizure Disorder continue Keppra Stable HTN: Labile Likely secondary to pain Low salt diet monitor DVT px On heparin, coumadin Code Status: FULL CODE Disposition: Plan to discharge home when stable Vital Signs: Date Time Temp Pulse Resp B/P (MAP) Pulse Ox O2 Delivery O2 Flow Rate FiO2 07/02/17 08:45 Room Air 07/02/17 07:15 36.6 87 18 137/92 (107) 95 07/02/17 00:00 36.5 100 20 146/99 (115) 99 Room Air 07/02/17 00:00 97 Room Air 07/01/17 16:08 36.5 100 20 172/95 (120) 93 Room Air 07/01/17 16:00 Room Air Lab Results: Results Past 24 Hours Test 07/02/17 06:42 Range/Units White Blood Count 7.40 4.8-10.8 K/uL Red Blood Count 4.88 4.7-6.1 M/uL Hemoglobin 15.1 14.0-18.0 g/dL Hematocrit 43.1 42-52 % Mean Corpuscular Volume 88.3 80-100 fL Mean Corpuscular Hemoglobin 30.9 25-34 pg Mean Corpuscular Hemoglobin Concent 35.0 32-36 g/dl Platelet Count 194 130-400 K/uL Mean Platelet Volume 9.5 7.4-10.4 fL Neutrophils (%) (Auto) 62.1 % Lymphocytes (%) (Auto) 27.4 % Monocytes (%) (Auto) 6.9 % Eosinophils (%) (Auto) 3.0 % Basophils (%) (Auto) 0.3 % Neutrophils # (Auto) 4.60 1.4-6.5 K/uL Lymphocytes # (Auto) 2.03 1.2-3.4 K/uL Monocytes # (Auto) 0.51 0.11-0.59 K/uL Eosinophils # (Auto) 0.22 0-0.5 K/uL Basophils # (Auto) 0.02 0-0.2 K/uL RDW Standard Deviation 41.6 36.4-46.3 fL RDW Coefficient of Variation 13.0 11.5-14.5 % Immature Granulocyte % (Auto) 0.3 % Immature Granulocyte # (Auto) 0.02 0.00-0.02 K/uL Prothrombin Time 10.7 9.0-12.0 SECONDS Prothromb Time International Ratio 1.0 0.9-1.1 Activated Partial Thromboplast Time 49.9 21.0-31.0 SECONDS Partial Thromboplastin Ratio 1.9 Sodium Level 140 136-145 mmol/L Potassium Level 4.0 3.5-5.1 mmol/L Chloride Level 107 98-107 mmol/L Carbon Dioxide Level 27 21-32 mmol/L Anion Gap 6.0 3-11 mmol/L Blood Urea Nitrogen 12 7-18 mg/dl Creatinine 0.97 0.60-1.40 mg/dl Est Creatinine Clear Calc Drug Dose 158.7 ml/min Estimated GFR () 111.1 Estimated GFR (Non- 95.9 BUN/Creatinine Ratio 12.3 10-20 Random Glucose 89 70-99 mg/dl Calcium Level 8.3 8.5-10.1 mg/dl
[2017-07-02] MEDS ORDERED: AMLODIPINE BESYLATE 5 MG TAB PO ONE (15:45)
[2017-07-02 15:47] VITALS: BP 140/101; PULSE 100; TEMP 36.6; O2SAT 93
[2017-07-02] MEDS ORDERED: WARFARIN SOD 10 MG TAB PO SCH (16:00)
[2017-07-03] MEDS: LEVETIRACETAM 750 MG PO SCH ×3 (00:01→20:41)
[2017-07-03 06:22] LABS: HEMATOCRIT 44.6 % (42-52); MEAN CORPUSCULAR HEMOGLOBIN 31.2 pg (25-34); MEAN CORPUSCULAR HGB CONC 35.4 g/dl (32-36); MEAN PLATELET VOLUME 9.1 fL (7.4-10.4); PLATELET COUNT 195 K/uL (130-400); RED BLOOD COUNT 5.07 M/uL (4.7-6.1); WHITE BLOOD COUNT 7.46 K/uL (4.8-10.8)
[2017-07-03 06:56] LABS: PARTIAL THROMBOPLASTIN RATIO 2.1; PROTHROMBIN TIME (PATIENT) 10.9 SECONDS (9.0-12.0)
[2017-07-03 07:47] VITALS: BP 126/89; PULSE 80; TEMP 36.5; O2SAT 98
[2017-07-03 08:00] VITALS: O2SAT 98
[2017-07-03] MEDS: HEPARIN 25000 UNIT/ D5W 500 ML (PHARMACY PREPARED) IV PRN ×4 (09:56→20:41)
--- NOTE | 2017-07-03 14:33 | Progress Note ---
Internal Med Progress Note Date of Service: Jul 03, 2017. Provider Documentation: SUBJECTIVE: Seen and examined at bedside Able to ambulate, pain is controlled with out meds Leg Erythema slowly improving Denies chest pain, SOB, abd pain, dizziness Family at bedside OBJECTIVE: Vital Signs-as noted below Physical Exam: General Appearance:Obese, no apparent distress Head: normocephalic, Atraumatic Eyes: normal inspection, EOMI, PERRL Neck: supple, Trachea midline Respiratory/Chest: Normal breath sounds, CTA Cardiovascular: S1, S2, No murmur Abdomen/GI:Soft, Non tender, Bowel sounds present Extremities/Musculoskelatal:normal inspection, L thigh erythema improving, non tender Neurologic/Psych:AAOX3, grossly no focal neurological deficits Skin: normal color, warm Lab data as noted below. ASSESSMENT & PLAN: Patient is a 42 yr male with a PMH of seizure disorder, varicose veins s/p stripping, recurrent phlebitis in the lower extremities presents with acute superficial thrombophlebitis and cellulitis Acute Superficial Thrombophlebitis Cellulitis H/O Varicose vein stripping and recurrent phlebitis since 2011 LLE U/S: No DVT within the left lower extremity. No change in the thrombosed greater saphenous vein. Leukocytosis normalized Completed IV Vancomycin 5 days of therapy Continue PO keflex Day #1/5 Toradol PRN for pain Blood cultures: No growth to date monitor leg circumference, erythema Warm compress Discussed with Dr. andrew (Oncology) Discussed with Vascular Surgery: Recommended anticoagulation Continue IV heparin and Coumadin Monitor INR:1.0 today Increase coumadin to 12.5mg today Hx. of Seizure Disorder continue Keppra Stable HTN: Labile Likely secondary to pain Low salt diet monitor DVT px On heparin, coumadin Code Status: FULL CODE Disposition: Plan to discharge home when stable Vital Signs: Date Time Temp Pulse Resp B/P (MAP) Pulse Ox O2 Delivery O2 Flow Rate FiO2 07/03/17 08:00 98 Room Air 07/03/17 07:47 36.5 80 16 126/89 (101) 98 07/03/17 00:00 Room Air 07/02/17 20:06 Room Air 07/02/17 16:00 Room Air 07/02/17 15:47 36.6 100 20 140/101 (114) 93 Room Air Lab Results: Results Past 24 Hours Test 07/03/17 06:11 Range/Units White Blood Count 7.46 4.8-10.8 K/uL Red Blood Count 5.07 4.7-6.1 M/uL Hemoglobin 15.8 14.0-18.0 g/dL Hematocrit 44.6 42-52 % Mean Corpuscular Volume 88.0 80-100 fL Mean Corpuscular Hemoglobin 31.2 25-34 pg Mean Corpuscular Hemoglobin Concent 35.4 32-36 g/dl RDW Standard Deviation 41.2 36.4-46.3 fL RDW Coefficient of Variation 13.0 11.5-14.5 % Platelet Count 195 130-400 K/uL Mean Platelet Volume 9.1 7.4-10.4 fL Prothrombin Time 10.9 9.0-12.0 SECONDS Prothromb Time International Ratio 1.0 0.9-1.1 Activated Partial Thromboplast Time 53.7 21.0-31.0 SECONDS Partial Thromboplastin Ratio 2.1
[2017-07-03 15:45] VITALS: BP 141/87; PULSE 102; TEMP 36.9; O2SAT 93
[2017-07-03 16:00] VITALS: O2SAT 98
[2017-07-03] MEDS ORDERED: WARFARIN SOD 2.5 MG TAB PO SCH (16:00)
[2017-07-03] MEDS ORDERED: WARFARIN SOD 10 MG TAB PO SCH (16:00)
[2017-07-03] MEDS: CEPHALEXIN MONOHYDRATE 500 MG CAP PO SCH ×2 (16:13→20:11)
[2017-07-03 20:00] VITALS: O2SAT 98
[2017-07-04] VITALS: O2SAT 98
[2017-07-04] MEDS: HEPARIN 25000 UNIT/ D5W 500 ML (PHARMACY PREPARED) IV PRN ×2 (06:10)
[2017-07-04 07:15] VITALS: BP 120/85; PULSE 86; TEMP 36.4; O2SAT 93
[2017-07-04 07:38] LABS: INR 1.2 (0.9-1.1); PARTIAL THROMBOPLASTIN RATIO 2.3; PROTHROMBIN TIME (PATIENT) 13.3 SECONDS (9.0-12.0)
[2017-07-04 07:46] LABS: BUN/CREATININE RATIO 14.5 (10-20); CALCIUM 8.9 mg/dl (8.5-10.1); CREATININE 1.13 mg/dl (0.60-1.40)
[2017-07-04] MEDS: CEPHALEXIN MONOHYDRATE 500 MG CAP PO SCH ×2 (08:44→12:28)
[2017-07-04] MEDS: LEVETIRACETAM 750 MG PO SCH (12:28)
[2017-07-04] MEDS ORDERED: ENOXAPARIN 150 MG/1ML SYR SQ ONE (12:45)
[2017-07-04] MEDS ORDERED: NURSING VERBAL MED ORDER ONE (12:45)
--- NOTE | 2017-07-04 13:10 | Progress Note ---
Internal Med Progress Note Date of Service: Jul 04, 2017. Provider Documentation: SUBJECTIVE: Seen and examined at bedside Feels much better today Leg Erythema much improved Denies chest pain, SOB, abd pain, dizziness Family at bedside OBJECTIVE: Vital Signs-as noted below Physical Exam: General Appearance:Obese, no apparent distress Head: normocephalic, Atraumatic Eyes: normal inspection, EOMI, PERRL Neck: supple, Trachea midline Respiratory/Chest: Normal breath sounds, CTA Cardiovascular: S1, S2, No murmur Abdomen/GI:Soft, Non tender, Bowel sounds present Extremities/Musculoskelatal:normal inspection, L thigh erythema improved, tender Neurologic/Psych:AAOX3, grossly no focal neurological deficits Skin: normal color, warm Lab data as noted below. ASSESSMENT & PLAN: Patient is a 42 yr male with a PMH of seizure disorder, varicose veins s/p stripping, recurrent phlebitis in the lower extremities presents with acute superficial thrombophlebitis and cellulitis Acute Superficial Thrombophlebitis Cellulitis H/O Varicose vein stripping and recurrent phlebitis since 2011 LLE U/S: No DVT within the left lower extremity. No change in the thrombosed greater saphenous vein. Leukocytosis normalized Completed IV Vancomycin 5 days of therapy Continue PO keflex Day #2/5 Toradol PRN for pain Blood cultures: No growth to date monitor leg circumference, erythema Warm compress Discussed with Dr. andrew (Oncology) Discussed with Vascular Surgery: Recommended anticoagulation DC IV heparin today Start on Lovenox 150mg BID and Coumadin Monitor INR:1.2 today Increase coumadin to 20mg today and 20mg tomorrow (Discussed with ) Monitor INR daily Hx. of Seizure Disorder continue Keppra Stable HTN: Labile Likely secondary to pain Low salt diet monitor DVT px On heparin, Coumadin Code Status: FULL CODE Disposition: Plan to discharge home when stable Follow up with on 07/06/17 at 12:45pm Get blood test PT/INR daily as advised Follow up with your doctor/Coumadin clinic for further Coumadin dosage Vital Signs: Date Time Temp Pulse Resp B/P (MAP) Pulse Ox O2 Delivery O2 Flow Rate FiO2 07/04/17 11:11 Room Air 07/04/17 07:15 36.4 86 18 120/85 (97) 93 Room Air 07/04/17 00:00 98 Room Air 07/03/17 20:00 98 Room Air 07/03/17 16:00 98 Room Air 07/03/17 15:45 36.9 102 20 141/87 (105) 93 Room Air Lab Results: Results Past 24 Hours Test 07/04/17 06:51 Range/Units Prothrombin Time 13.3 9.0-12.0 SECONDS Prothromb Time International Ratio 1.2 0.9-1.1 Activated Partial Thromboplast Time 59.6 21.0-31.0 SECONDS Partial Thromboplastin Ratio 2.3 Sodium Level 136 136-145 mmol/L Potassium Level 4.0 3.5-5.1 mmol/L Chloride Level 101 98-107 mmol/L Carbon Dioxide Level 25 21-32 mmol/L Anion Gap 10.0 3-11 mmol/L Blood Urea Nitrogen 16 7-18 mg/dl Creatinine 1.13 0.60-1.40 mg/dl Est Creatinine Clear Calc Drug Dose 136.2 ml/min Estimated GFR () 92.4 Estimated GFR (Non- 79.7 BUN/Creatinine Ratio 14.5 10-20 Random Glucose 90 70-99 mg/dl Calcium Level 8.9 8.5-10.1 mg/dl
[2017-07-04] MEDS ORDERED: WARFARIN SOD 10 MG TAB PO SCH (14:00)
[2017-07-04] MEDS ORDERED: CMD25 PO (17:23)
[2017-07-04] MEDS ORDERED: CMD10 PO (17:23)
[2017-07-04] MEDS ORDERED: LVNIS150 SQ (17:23)
--- NOTE | 2017-07-04 17:32 | Discharge Instructions ---
Discharge Instructions Date of Service Jul 04, 2017. Admission Reason for Admission: Cellulitis, Superficial Thrombophlebitis Discharge Discharge Diagnosis / Problem: Acute Superficial Thrombophlebitis, cellulitis Discharge Goals Goal(s): Decrease discomfort, Improve function Activity Recommendations Activity Limitations: resume your previous activity Exercise/Sports Limitations: as tolerated . Instructions / Follow-Up Instructions / Follow-Up Follow up with on 07/06/17 at 12:45pm Get blood test PT/INR daily as advised Complete the antibiotic course as advised Seek immediate medical attention if your symptoms reoccur or worsen Watch for bleeding issues while on lovenox and coumadin. Notify your doctor immediately if your develop any bleeding. Get Hypercoagulable work up as outpatient as advised Your Target PT/INR: Between 2.0 to 3.0 Continue Lovenox until your INR is in the target range. Discuss with your Doctor /Coumadin clinic regarding duration of Lovenox therapy requirement. Take 20mg coumadin tomorrow (07/05/17) Get PT/INR tomorrow (07/05/17) and follow up with coumadin clinic for further coumadin dosage Current Hospital Diet Patient's current hospital diet: AHA Diet (Heart Healthy) Discharge Diet Recommended Diet: AHA Diet (Heart Healthy) Pending Studies Studies pending at discharge: no Work Instructions Return To Work: after follow-up Additional Instructions: Patient was admitted at [facility] on 06/28/17 and discharged on 07/04/17. Patient can return to work after follow up with his primary care physician on 07/06/17. Medical Emergencies . Who to Call and When: Medical Emergencies: If at any time you feel your situation is an emergency, please call 911 immediately. . Non-Emergent Contact Non-Emergency issues call your: Primary Care Provider Call Non-Emergent contact if: you have a fever, your pain is not controlled, your pain is worsening, your pain is unusual for you, your pain is concerning you, you have any medication questions . . "Provider Documentation" section prepared by Julian Garcia. . VTE Core Measure Inpt VTE Proph given/why not?: Enoxaparin (Lovenox)SQ, Unfractionated heparin SQ, Warfarin (Coumadin)
--- NOTE | 2017-07-04 17:35 | Discharge Summary ---
Discharge Summary Date of Service Jul 04, 2017. Discharge Summary Admission Date: Jun 28, 2017 at 21:55 Discharge Date: Jul 04, 2017 Discharge Disposition: Home Principal Diagnosis: Acute Superficial Thrombophlebitis, cellulitis Procedures: Venous Doppler: No DVT within the left lower extremity. No change in the thrombosed greater saphenous vein. CTA: No definite evidence for pulmonary embolus. Consultations: None Pending Studies/Follow-Up: Follow up with on 07/06/17 at 12:45pm Get blood test PT/INR daily as advised Complete the antibiotic course as advised Seek immediate medical attention if your symptoms reoccur or worsen Watch for bleeding issues while on lovenox and coumadin. Notify your doctor immediately if your develop any bleeding. Get Hypercoagulable work up as outpatient as advised Your Target PT/INR: Between 2.0 to 3.0 Continue Lovenox until your INR is in the target range. Discuss with your Doctor /Coumadin clinic regarding duration of Lovenox therapy requirement. Take 20mg coumadin tomorrow (07/05/17) Get PT/INR tomorrow (07/05/17) and follow up with coumadin clinic for further coumadin dosage Medication Reconciliation New Medications: Warfarin Sod (Coumadin) 2.5 Mg Tab 2.5 MG PO UD for 30 Days, #100 TAB 2 Refills Take 20 mg coumadin on 07/05/17. Get PT/INR daily and follow up with coumadin clinic for further coumadin dosage Enoxaparin (Lovenox) 150 Mg/1 Ml Inj 150 MG SQ Q12H for 5 Days Warfarin Sod (Coumadin) 10 Mg Tab 20 MG PO UD for 30 Days, #60 TAB 2 Refills Take 20 mg coumadin on 07/05/17. Get PT/INR daily and follow up with coumadin clinic for further coumadin dosage Continued Medications: Cephalexin Monohydrate (Keflex) 500 Mg Cap 500 MG PO QID for 9 Days, #36 CAP Levetiracetam (Keppra) 750 Mg Tab 750 MG PO BID, TAB Multivitamin (Multivitamin) Tab 1 TAB PO DAILY, TAB Admission Information HPI (per Admitting provider): This is a 42 year old male with a PMH of seizure disorder, varicose veins s/p stripping, recurrent phlebitis in the lower extremities presents secondary to severe LLE pain in the upper, medial thigh - he was at [facility] ER at 06/25 and 06/26 - at that time was diagnosed with superficial thrombophlebitis and cellulitis and was sent home with Keflex. States that the pain and the redness worsened. It has now spread throughout his medial thigh and there is significant pain to touch. Denies fevers/chills, denies nausea/vomiting, denies all other symptoms. Physical Exam (per Admitting): General Appearance: WD/WN, no apparent distress, + obese Head: normocephalic, atraumatic Eyes: normal inspection ENT: hearing grossly normal Respiratory/Chest: chest non-tender, lungs clear, normal breath sounds, no respiratory distress, no accessory muscle use Cardiovascular: regular rate, rhythm, no edema, no murmur Abdomen/GI: normal bowel sounds, non tender, soft, no organomegaly Back: no CVA tenderness, no muscle spasm Extremities/Musculoskelatal: + swelling, + pertinent finding (+swelling, significant erythema, warmth to touch, tenderness to palpation) Neurologic/Psych: no motor/sensory deficits, alert, normal mood/affect Skin: normal color Lymphatic: no adenopathy Hospital Course Patient is a 42 yr male with a PMH of seizure disorder, varicose veins s/p stripping, recurrent phlebitis in the lower extremities presents with acute superficial thrombophlebitis and cellulitis Acute Superficial Thrombophlebitis Cellulitis H/O Varicose vein stripping and recurrent phlebitis since 2011 LLE U/S: No DVT within the left lower extremity. No change in the thrombosed greater saphenous vein. Leukocytosis normalized Completed IV Vancomycin 5 days of therapy Continue PO keflex Day #2/5 Toradol PRN for pain Blood cultures: No growth to date monitor leg circumference, erythema Warm compress Discussed with Dr. andrew (Oncology) Discussed with Vascular Surgery: Recommended anticoagulation DC IV heparin today Start on Lovenox 150mg BID and Coumadin Monitor INR:1.2 today Increase coumadin to 20mg today and 20mg tomorrow (Discussed with ) Monitor INR daily Hx. of Seizure Disorder continue Keppra Stable HTN: Labile Likely secondary to pain Low salt diet monitor DVT px On heparin, Coumadin Code Status: FULL CODE Disposition: Plan to discharge home when stable Follow up with on 07/06/17 at 12:45pm Get blood test PT/INR daily as advised Follow up with your doctor/Coumadin clinic for further Coumadin dosage Total time spent on discharge = 35 minutes This includes examination of the patient, discharge planning, medication reconciliation, and communication with other providers. Discharge Instructions Discharge Instructions Date of Service Jul 04, 2017. Admission Reason for Admission: Cellulitis, Superficial Thrombophlebitis Discharge Discharge Diagnosis / Problem: Acute Superficial Thrombophlebitis, cellulitis Discharge Goals Goal(s): Decrease discomfort, Improve function Activity Recommendations Activity Limitations: resume your previous activity Exercise/Sports Limitations: as tolerated . Instructions / Follow-Up Instructions / Follow-Up Follow up with on 07/06/17 at 12:45pm Get blood test PT/INR daily as advised Complete the antibiotic course as advised Seek immediate medical attention if your symptoms reoccur or worsen Watch for bleeding issues while on lovenox and coumadin. Notify your doctor immediately if your develop any bleeding. Get Hypercoagulable work up as outpatient as advised Your Target PT/INR: Between 2.0 to 3.0 Continue Lovenox until your INR is in the target range. Discuss with your Doctor /Coumadin clinic regarding duration of Lovenox therapy requirement. Take 20mg coumadin tomorrow (07/05/17) Get PT/INR tomorrow (07/05/17) and follow up with coumadin clinic for further coumadin dosage Current Hospital Diet Patient's current hospital diet: AHA Diet (Heart Healthy) Discharge Diet Recommended Diet: AHA Diet (Heart Healthy) Pending Studies Studies pending at discharge: no Medical Emergencies . Who to Call and When: Medical Emergencies: If at any time you feel your situation is an emergency, please call 911 immediately. . Non-Emergent Contact Non-Emergency issues call your: Primary Care Provider Call Non-Emergent contact if: you have a fever, your pain is not controlled, your pain is worsening, your pain is unusual for you, your pain is concerning you, you have any medication questions . . "Provider Documentation" section prepared by Julian Garcia. . VTE Core Measure Inpt VTE Proph given/why not?: Enoxaparin (Lovenox)SQ, Unfractionated heparin SQ, Warfarin (Coumadin) <Electronically signed by Julian Garcia MD> Signed: 07/04/17 [id number] Signed: The status of this report is Signed * If report status is Draft, the document has not been finalized by the responsible provider.
[2017-07-04 17:37] VITALS: BP 120/85; PULSE 86; TEMP 36.4; O2SAT 93
[2017-07-04] MEDS ORDERED: ENOXAPARIN 150 MG/1ML SYR SQ SCH (22:00)
== END 2017-07-04 18:07 | disposition home or self-care (01) | DRG 300 ==
LOC: C.EDB 18:24 → C.4E 21:55 → ENRESERV 22:26
PROVIDERS: ADMIT Family Medicine; ATTEND Internal Medicine
DX: I80.02 Phlebitis and thrombophlebitis of superficial vessels of left lower extremity (principal); L03.116 Cellulitis of left lower limb; Z68.42 Body mass index [BMI] 45.0-49.9, adult; E66.9 Obesity, unspecified; G40.909 Epilepsy, unspecified, not intractable, without status epilepticus; R03.0 Elevated blood-pressure reading, without diagnosis of hypertension; Z79.2 Long term (current) use of antibiotics; Z79.899 Other long term (current) drug therapy; Z88.1 Allergy status to other antibiotic agents; Z88.2 Allergy status to sulfonamides

== ENCOUNTER 2021-07-28 14:26 | Inpatient (IN) ==
[2021-07-28] MEDS ORDERED: dexAMETHasone**PF** 10 MG/ML VIAL IV ONE (14:54)
[2021-07-28 15:22] LABS: Basophils # (auto) 0.01 K/uL (0-0.2); Basophils % (auto) 0.1 %; Eosinophils # (auto) 0.02 K/uL (0-0.5); Eosinophils % (auto) 0.3 %; Hematocrit (blood only) 44.2 % (42-52); Immature Granulocytes # (auto) 0.03 K/uL (0.00-0.02); Immature Granulocytes % (auto) 0.4 %; Lymphocytes # (auto) 1.46 K/uL (1.2-3.4); Lymphocytes % (auto) 21.1 %; Mean Corpuscular Hemoglobin 30.9 pg (25-34); Mean Corpuscular Hgb Conc 33.9 g/dL (32-36); Mean Corpuscular Volume 90.9 fL (80-100); Mean Platelet Volume 9.3 fL (7.4-10.4); Monocytes # (auto) 0.88 K/uL (0.11-0.59); Monocytes % (auto) 12.7 %; Neutrophils # (auto) 4.52 K/uL (1.4-6.5); Neutrophils % (auto) 65.4 %; Platelet Count 233 K/uL (130-400); RDW Coefficient of Variation 13.2 % (11.5-14.5); Red Blood Count 4.86 M/uL (4.7-6.1); White Blood Count 6.92 K/uL (4.8-10.8)
[2021-07-28 15:31] LABS: Appearance Urine Clear (Clear); Bilirubin Urine Negative (Negative); Blood Urine Negative (Negative); Color Urine Dark Yellow; Glucose Urine UA Negative (Negative); Ketones Urine Negative (Negative); Leukocyte Esterase Urine Negative (Negative); Nitrite Urine Negative (Negative); Protein Urine Negative (Negative); Specific Gravity Urine 1.022 (1.000-1.030); Urobilinogen Urine Negative (Negative); pH Urine 5.5 (4.5-7.5)
[2021-07-28 15:40] LABS: Alanine Aminotransferase 33 (12-78); Albumin Level 2.8 gm/dl (3.4-5.0); Aspartate Aminotransferase 19 U/L (15-37); BUN Creatinine Ratio 20.4 (10-20); Blood Urea Nitrogen 21 mg/dl (7-18); Calcium 8.8 mg/dl (8.5-10.1); Carbon Dioxide 27 mmol/L (21-32); Chloride 106 mmol/L (98-107); Creatinine Clr Calc Pharmacy 145.8 ml/min; Est GFR (African American) 101.7 ml/min; Est GFR (Non-African American) 87.7 ml/min; Glucose 95 mg/dl (70-99); Potassium 3.8 mmol/L (3.5-5.1); Sodium 138 mmol/L (136-145)
[2021-07-28 15:45] LABS: Albumin Globulin Ratio 0.6 (0.9-2); Alkaline Phosphatase 62 U/L (45-117); Bilirubin,Total 0.8 mg/dl (0.2-1); C Reactive Protein 4.55 mg/dl (0-0.29); Globulin 4.4 gm/dl (2.5-4.0); NT Pro B Type Natriuretic Pept 33 pg/ml (0-450); Total Protein 7.2 gm/dl (6.4-8.2); Troponin I < 0.015 ng/ml (0-0.045)
--- NOTE | 2021-07-28 16:41 | CT Scan Report ---
CT angio chest PE protocol CT DOSE: 956.81 mGy.cm HISTORY: 46 years-old Male with Dyspnea, +covid. Acute shortness of breath. COVID Positive. TECHNIQUE: Multiple CTA images of the chest were obtained after the intravenous administration of Opt iray. Coronal and sagittal MIPS were obtained from the axial data set and were submitted for review. All measurements were obtained according to NASCET criteria. A dose lowering technique was utilized adhering to the principles of ALARA. COMPARISON: Chest radiograph 08/17/2020, CTA chest 06/28/2017 FINDINGS: CTA: The heart is normal in size. There is no pericardial effusion. No thoracic aortic aneurysm or dissect ion. There is patency of the imaged great vessels. The segmental and subsegmental pulmonary arterial branches are not well evaluated secondary to contrast bolus timing. No central pulmonary emboli are i dentified. CT CHEST: No thyroid nodule. Prominent and mildly enlarged mediastinal and hilar lymph nodes measure up to 10 m m, likely reactive. Trace amount of pleural fluid at the lung bases. No pneumothorax. Patchy multifoc al bilateral intermixed groundglass and consolidative opacities are noted within all lobes bilaterall y. The central airways are patent. Small right tracheoesophageal recess tracheocele. No acute process of the imaged upper abdomen. Hepatosplenomegaly with hepatic steatosis. Tiny hiatal hernia. Unremarkable soft tissues. There is no acute fracture or suspicious bone lesion identified. IMPRESSION: 1. No pulmonary emboli identified. 2. Multifocal bilateral intermixed groundglass and consolidative opacities compatible with viral pneu monia. 3. Mild likely reactive mediastinal and hilar adenopathy. 4. Hepatosplenomegaly with hepatic steatosis. ACT 112: Negative or not required by law. The above report was generated using voice recognition software. It may contain grammatical, syntax o r spelling errors. Electronically signed by: Isaac Szymanski M.D. 07/28/2021 4:40 PM
--- NOTE | 2021-07-28 16:41 | Electrocardiogram Report ---
Test Reason : Blood Pressure : / mmHG Vent. Rate : 093 BPM Atrial Rate : 093 BPM P-R Int : 164 ms QRS Dur : 106 ms QT Int : 348 ms P-R-T Axes : 031 091 038 degrees QTc Int : 432 ms Normal sinus rhythm Rightward axis Borderline ECG When compared with ECG of 18-OCT-2019 03:42, No significant change was found Confirmed by Roland Perez ([id number]) on 07/28/2021 4:41:30 PM Referred By: REFERRED SELF Confirmed By:Roland Perez
--- NOTE | 2021-07-28 17:05 | Emergency Department Note ---
Impression & Plan COVID-19, Pneumonia, Hypoxia ED Provider Note INFORMANT: Patient and ED PROVIDER(S): Geovanny Gómez MD CHIEF COMPLAINT: Shortness of breath and dyspnea PLAN: Disposition: Admitted Condition: Good Outpatient prescription management: none Referral: None MEDICAL DECISION MAKING: Patient presented because of increased dyspnea. He had hypoxia at home. Even with rest his O2 saturations were 91%. He had increased work of breathing. A work-up was initiated. The patient CBC and chemistry panel are unremarkable. His CRP is moderately elevated. Procalcitonin is negative. Patient's troponin is negative. ECG is negative. CT PE study was performed and shows bilateral pneumonia which is consistent with his COVID-19 diagnosis. No thromboembolic disease was noted. Patient was given IV Decadron. Given his progression of disease and hypoxia at home further management was felt to be warranted. Consultation was made with Dr. Sandra of the internal medicine service. Patient was evaluated in ER for further management. Triage Nursing notes reviewed and agree them. Vital Signs: reviewed and remarkable for tachypnea Differential diagnosis: COVID-19, reactive airway disease, pneumonia, pneumothorax, COPD, CHF, infectio ns, cardiac ischemia, pulmonary embolism, musculoskeletal, gastrointestinal, as well as other pathologies. Diagnostics interpreted by me: ECG: Twelve-lead ECG reveals normal sinus rhythm at 93 bpm. Right axis deviation. No ST elevation or depression. No PACs or PVCs. Cardiac Monitoring: Cardiac monitoring ordered by me: The patient was placed on continuous cardiac monitoring and observed. It revealed a normal sinus rhythm at 98 beats per minute without ectopy or evidence of dysrhythmia. Imaging studies: CT scan of the chest reveals no evidence of thromboembolic disease. Bilateral infiltrates that seem consistent with a viral pneumonia process. HPI: The patient is a 46year old male who presents to the Emergency Room with complaints of shortness of breath and dyspnea. This started a week ago and is progressing. The patient was diagnosed with COVID-19. He was started on prednisone, doxycycline, and an inhaler of albuterol as he did not want to be in the hospital. He notes with little exertion he is very dyspneic. His O2 saturations dipped down to 84%. Patient notes loss of taste and smell. Pt denies LOC, headache, fevers, chills, diaphoresis, visual changes, neck pain, chest pain, nausea, vomiting, abdominal pain, back pain, melena, hematochezia, urinary symptoms, numbness, weakness, lymphadenopathy, rash, or other complaints. ROS: See above HPI for pertinent positives & negatives. A total of 10 systems reviewed and were otherwise negative. PAST MEDICAL HISTORY:See Below , seizure PAST SURGICAL HISTORY:See Below, FAMILY HISTORY:See Below SOCIAL HISTORY:See Below, employed. . HOME MEDICATIONS:See Below ALLERGIES:See Below VITALS:See Below PHYSICAL EXAMINATION: GENERAL: Awake, alert, dyspneic-appearing, in no distress HENT: Normocephalic, atraumatic. Oropharynx unremarkable. EYES: Normal conjunctiva. Sclera non-icteric. NECK: Inspection normal. Non-tender. Supple. No nuchal rigidity. FROM. No masses. RESPIRATORY: Clear to auscultation. No wheezes. No rales. Increased respiratory effort. CARDIAC: Normal rate. Normal rhythm. No murmurs. No rubs. Extremities warm and well perfused. Pulses equal. No JVD. GI: Soft, non-distended. No tenderness to palpation. No rebound or guarding. No masses. RECTAL: Deferred. MUSCULOSKELETAL: Atraumatic. Chest examination reveals no tenderness. The back is symmetrical on inspection without obvious abnormality. There is no CVA tenderness to palpation. No joint edema. LOWER EXTREMITIES: Calves are equal size bilaterally and non-tender. No edema. No discoloration. NEURO: Normal sensorium. No sensory or motor deficits noted. SKIN: No rash or jaundice noted. Geovanny Gómez MD Past Med/Surg History Medical History (Updated 07/28/21 @ 17:24 by Alex Sandra MD) High cholesterol Hydrocele Seizure disorder (08/01/12) Superficial thrombophlebitis Surgical History No pertinent past surgical history Family History Mother Breast cancer Diabetes Hypertension Grandfather Myocardial infarction Other Colon cancer Family history non-contributory Denies family history of Ovarian cancer Prostate cancer Social History Smoking Status: Never smoker Hx Alcohol Use: No Hx Substance Use: No Preferred Language: Bengali Visual Impairment: No Limitations Hearing Ability: Normal marital status: Current Living Situation: Family current occupational status: employed current occupation: Security Feels Safe at Home: Yes Childhood Exposure to Second-Hand Smoke: No Dental Care, Regularly: No Physical Activity Frequency: 3-4 Times per Week Seatbelt Use: always Sunscreen Use: Yes Allergies Allergies Allergy/AdvReac Type Severity Reaction Status Date / Time phenytoin Allergy Intermediate Hives Verified 10/18/19 06:03 amoxicillin Allergy Mild Hives Verified 10/18/19 06:03 erythromycin base Allergy Unknown Hives Verified 10/18/19 06:03 Sulfa (Sulfonamide Allergy Unknown Hives Verified 10/18/19 06:03 Antibiotics) zonisamide Allergy Unknown Hives Verified 10/18/19 06:03 Home Meds Home Medications Medication Instructions Recorded Confirmed albuterol sulfate 90 mcg/actuation 2 puff INHALATION Q6H PRN 07/28/21 07/28/21 aerosol inhaler Results & Data (ED) Vital Signs Vital Signs - 24 hr 07/28/21 14:34 07/28/21 14:38 07/28/21 15:00 Temperature 37.2 C Temperature Source Oral Pulse Rate 96 H Pulse Rate [Apical] Pulse Rhythm Regular Pulse Rhythm [Apical] Pulse Strength Normal Pulse Strength [Apical] Respiratory Rate 28 H Respiratory Effort / Characteristics Spontaneous Accessory Muscle Use Short of Breath SOB on Exertion Spontaneous Short of Breath SOB on Exertion Respiratory Depth Shallow Shallow Respiratory Pattern Tachypnea Tachypnea Blood Pressure 146/90 H Blood Pressure [Right Arm] Blood Pressure Mean 108 Blood Pressure Mean [Right Arm] Blood Pressure Position Sitting Blood Pressure Position [Right Arm] Pulse Oximetry 91 93 Oxygen Delivery Method Room Air Room Air Room Air Oxygen Flow Rate Sepsis Recent Fever Within 48 Hours No Sepsis New/Unexplained Change in Mental Status No Sepsis Action Taken by Nursing No Action Required Oxygen Flow Rate - Titration Pulse Oximetry Post Tiitration 07/28/21 15:47 07/28/21 16:00 07/28/21 16:35 Temperature Temperature Source Pulse Rate Pulse Rate [Apical] 86 84 98 H Pulse Rhythm Pulse Rhythm [Apical] Regular Regular Regular Pulse Strength Pulse Strength [Apical] Normal Normal Normal Respiratory Rate 18 26 H 28 H Respiratory Effort / Characteristics Non-Labored Spontaneous Short of Breath SOB on Exertion Spontaneous Short of Breath SOB on Exertion Respiratory Depth Normal Shallow Shallow Respiratory Pattern Regular Tachypnea Tachypnea Blood Pressure Blood Pressure [Right Arm] 131/82 130/81 137/81 Blood Pressure Mean Blood Pressure Mean [Right Arm] 98 97 99 Blood Pressure Position Blood Pressure Position [Right Arm] Lying Lying Lying Pulse Oximetry 91 91 95 Oxygen Delivery Method Room Air Room Air Room Air Oxygen Flow Rate Sepsis Recent Fever Within 48 Hours Sepsis New/Unexplained Change in Mental Status Sepsis Action Taken by Nursing Oxygen Flow Rate - Titration Pulse Oximetry Post Tiitration 07/28/21 17:10 Temperature Temperature Source Pulse Rate Pulse Rate [Apical] Pulse Rhythm Pulse Rhythm [Apical] Pulse Strength Pulse Strength [Apical] Respiratory Rate Respiratory Effort / Characteristics Respiratory Depth Respiratory Pattern Blood Pressure Blood Pressure [Right Arm] Blood Pressure Mean Blood Pressure Mean [Right Arm] Blood Pressure Position Blood Pressure Position [Right Arm] Pulse Oximetry 91 Oxygen Delivery Method Nasal Cannula Oxygen Flow Rate 0 Sepsis Recent Fever Within 48 Hours Sepsis New/Unexplained Change in Mental Status Sepsis Action Taken by Nursing Oxygen Flow Rate - Titration 2 Pulse Oximetry Post Tiitration 95 Laboratory Data Result diagrams: 07/28/21 15:04 07/28/21 15:04 Lab Results 07/28/21 07/28/21 07/28/21 Range/Units 15:04 15:04 15:04 WBC 6.92 (4.8-10.8) K/uL RBC 4.86 (4.7-6.1) M/uL Hgb 15.0 (14.0-18.0) g/dL Hct 44.2 (42-52) % MCV 90.9 (80-100) fL MCH 30.9 (25-34) pg MCHC 33.9 (32-36) g/dL RDW Std Deviation 44.0 (36.4-46.3) fL RDW Coeff of [place] 13.2 (11.5-14.5) % Plt Count 233 (130-400) K/uL MPV 9.3 (7.4-10.4) fL Immature Gran % (Auto) 0.4 % Neut % (Auto) 65.4 % Lymph % (Auto) 21.1 % Nolan % (Auto) 12.7 % Eos % (Auto) 0.3 % Baso % (Auto) 0.1 % Neut # (Auto) 4.52 (1.4-6.5) K/uL Lymph # (Auto) 1.46 (1.2-3.4) K/uL Nolan # (Auto) 0.88 H (0.11-0.59) K/uL Eos # (Auto) 0.02 (0-0.5) K/uL Baso # (Auto) 0.01 (0-0.2) K/uL Immature Gran # (Auto) 0.03 H (0.00-0.02) K/uL Sodium 138 (136-145) mmol/L Potassium 3.8 (3.5-5.1) mmol/L Chloride 106 (98-107) mmol/L Carbon Dioxide 27 (21-32) mmol/L Anion Gap 5.0 (3-11) BUN 21 H (7-18) mg/dl Creatinine 1.02 (0.6-1.4) mg/dl Est Cr Clr Drug Dosing 145.8 ml/min Est GFR ( Amer) 101.7 ml/min Est GFR (Non-Af Amer) 87.7 ml/min BUN/Creatinine Ratio 20.4 H (10-20) Glucose 95 (70-99) mg/dl Calcium 8.8 (8.5-10.1) mg/dl Total Bilirubin 0.8 (0.2-1) mg/dl AST 19 (15-37) U/L ALT 33 (12-78) Alkaline Phosphatase 62 (45-117) U/L Troponin I < 0.015 (0-0.045) ng/ml C-Reactive Protein 4.55 H (0-0.29) mg/dl NT-Pro-B Natriuret Pep 33 (0-450) pg/ml Total Protein 7.2 (6.4-8.2) gm/dl Albumin 2.8 L (3.4-5.0) gm/dl Globulin 4.4 H (2.5-4.0) gm/dl Albumin/Globulin Ratio 0.6 L (0.9-2) Procalcitonin < 0.05 (0-0.5) ng/ml Urine Color Urine Appearance (Clear) Urine pH (4.5-7.5) Ur Specific [place] (1.000-1.030) Urine Protein (Negative) Urine Glucose (UA) (Negative) Urine Ketones (Negative) Urine Blood (Negative) Urine Nitrite (Negative) Urine Bilirubin (Negative) Urine Urobilinogen (Negative) Ur Leukocyte Esterase (Negative) 12/07/21 Range/Units 15:09 WBC (4.8-10.8) K/uL RBC (4.7-6.1) M/uL Hgb (14.0-18.0) g/dL Hct (42-52) % MCV (80-100) fL MCH (25-34) pg MCHC (32-36) g/dL RDW Std Deviation (36.4-46.3) fL RDW Coeff of [place] (11.5-14.5) % Plt Count (130-400) K/uL MPV (7.4-10.4) fL Immature Gran % (Auto) % Neut % (Auto) % Lymph % (Auto) % Nolan % (Auto) % Eos % (Auto) % Baso % (Auto) % Neut # (Auto) (1.4-6.5) K/uL Lymph # (Auto) (1.2-3.4) K/uL Nolan # (Auto) (0.11-0.59) K/uL Eos # (Auto) (0-0.5) K/uL Baso # (Auto) (0-0.2) K/uL Immature Gran # (Auto) (0.00-0.02) K/uL Sodium (136-145) mmol/L Potassium (3.5-5.1) mmol/L Chloride (98-107) mmol/L Carbon Dioxide (21-32) mmol/L Anion Gap (3-11) BUN (7-18) mg/dl Creatinine (0.6-1.4) mg/dl Est Cr Clr Drug Dosing ml/min Est GFR ( Amer) ml/min Est GFR (Non-Af Amer) ml/min BUN/Creatinine Ratio (10-20) Glucose (70-99) mg/dl Calcium (8.5-10.1) mg/dl Total Bilirubin (0.2-1) mg/dl AST (15-37) U/L ALT (12-78) Alkaline Phosphatase (45-117) U/L Troponin I (0-0.045) ng/ml C-Reactive Protein (0-0.29) mg/dl NT-Pro-B Natriuret Pep (0-450) pg/ml Total Protein (6.4-8.2) gm/dl Albumin (3.4-5.0) gm/dl Globulin (2.5-4.0) gm/dl Albumin/Globulin Ratio (0.9-2) Procalcitonin (0-0.5) ng/ml Urine Color Dark Yellow Urine Appearance Clear (Clear) Urine pH 5.5 (4.5-7.5) Ur Specific [place] 1.022 (1.000-1.030) Urine Protein Negative (Negative) Urine Glucose (UA) Negative (Negative) Urine Ketones Negative (Negative) Urine Blood Negative (Negative) Urine Nitrite Negative (Negative) Urine Bilirubin Negative (Negative) Urine Urobilinogen Negative (Negative) Ur Leukocyte Esterase Negative (Negative) Administered Medications Discontinued Medications Dexamethasone Sodium Phosphate (DexamethasonePf 10 Mg/Ml Vial) 6 mg IV NOW ONE Stop: 07/28/21 14:55 Last Admin: 07/28/21 15:11 Dose: 6 mg Documented by: [id number] Imaging Data Radiologist's Impression: Chest CTA 07/28/21 14:53 CT angio chest PE protocol CT DOSE: 956.81 mGy.cm HISTORY: 46 years-old Male with Dyspnea, +covid. Acute shortness of breath. COVID Positive. TECHNIQUE: Multiple CTA images of the chest were obtained after the intravenous administration of Optiray. Coronal and sagittal MIPS were obtained from the axial data set and were submitted for review. All measurements were obtained according to NASCET criteria. A dose lowering technique was utilized adhering to the principles of ALARA. COMPARISON: Chest radiograph 08/17/2020, CTA chest 06/28/2017 FINDINGS: CTA: The heart is normal in size. There is no pericardial effusion. No thoracic aortic aneurysm or dissection. There is patency of the imaged great vessels. The segmental and subsegmental pulmonary arterial branches are not well evaluated secondary to contrast bolus timing. No central pulmonary emboli are identified. CT CHEST: No thyroid nodule. Prominent and mildly enlarged mediastinal and hilar lymph nodes measure up to 10 mm, likely reactive. Trace amount of pleural fluid at the lung bases. No pneumothorax. Patchy multifocal bilateral intermixed groundglass and consolidative opacities are noted within all lobes bilaterally. The central airways are patent. Small right tracheoesophageal recess tracheocele. No acute process of the imaged upper abdomen. Hepatosplenomegaly with hepatic steatosis. Tiny hiatal hernia. Unremarkable soft tissues. There is no acute fracture or suspicious bone lesion identified. IMPRESSION: 1. No pulmonary emboli identified. 2. Multifocal bilateral intermixed groundglass and consolidative opacities compatible with viral pneumonia. 3. Mild likely reactive mediastinal and hilar adenopathy. 4. Hepatosplenomegaly with hepatic steatosis. ACT 112: Negative or not required by law. The above report was generated using voice recognition software. It may contain grammatical, syntax or spelling errors. Electronically signed by: Isaac Szymanski M.D. 07/28/2021 4:40 PM Discharge Plan Visit Data Chief Complaint: Shortness of Breath/Dyspnea ED Provider: Geovanny Gómez Discharge Problem: COVID-19, Pneumonia, Hypoxia Forms Stand Alone Forms: My [facility] Prescriptions Prescriptions: No Action albuterol sulfate 90 mcg/actuation HFA aerosol inhaler 2 puff INHALATION Q6H PRN (Reason: Shortness Of Breath) RF: 0 Referrals Referrals: Alyson Etienne PA-C [Primary Care Provider] -
--- NOTE | 2021-07-28 17:21 | History & Physical Report ---
Date of Service July 28, 2021 Assessment & Plan (1) COVID-19: Plan: Unvaccinated (prior severe reaction to influenza vaccination). Day 13 of symptoms. Dexamethasone 6mg IV daily Outside window for remdesivir Does not qualify for baricitinib Prone as able Incentive spirometer *Given patient history of large superficial thrombophlebitis would consider Xarelto/Eliquis prophylaxis on discharge for VTE prophylaxis (2) Hypoxia: Plan: Secondary to COVID-19 pneumonia No respiratory distress Aim O2 sats > 90% Plan: VTE Prophylaxis - Lovenox 40mg SQ BID Diet - regular Disposition - admit to [facility] med/surg Admission and Anticipated Discharge Date Admission Date: July 28, 2021 History of Present Illness Chief Complaint: Shortness of breath on exertion Primary Care Provider: Alyson Etienne PA-C Chay Jha is a 46 year old male who works at a security field supervisor at [employer] who presents to the ER with shortness of breath on exertion. He has known COVID-19 (his mother just after thanksgiving here with COVID), currently on day 13 of his illness. He is unvaccinated due to prior severe adverse reaction to the influenza vaccination (required intubation and life-flight). He is very fatigued and short of breath on exertion. O2 sats in the ER 90-92% on room air but drop to mid 80s on exertion. His Maria Teresa works as an RN in the ER and helpful providing some of the history. His fever broke on Tuesday. Associated symptoms of loss of taste and smell, reduced appetite, nasal congestion improving. No diarrhea, chest or abdominal pain. Due to progressive symptoms he was prescribed prednisone and doxycycline 5 days ago (finished the prednisone yesterday). He has noticed no difference using albuterol prescribed. He has no history of COPD or asthma. In the ER he is currently maintaining sats 90-92% on room air at rest. CTA showing multifocal pneumonia with bilateral mixed groundglass and consolidative opacities compatible with viral pneumonia. Allergies Allergy/AdvReac Type Severity Reaction Status Date / Time phenytoin Allergy Intermediate Hives Verified 10/18/19 06:03 amoxicillin Allergy Mild Hives Verified 10/18/19 06:03 erythromycin base Allergy Unknown Hives Verified 10/18/19 06:03 Sulfa (Sulfonamide Allergy Unknown Hives Verified 10/18/19 06:03 Antibiotics) zonisamide Allergy Unknown Hives Verified 10/18/19 06:03 Home Medications Medication Instructions Recorded Confirmed Type albuterol sulfate 90 mcg/actuation 2 puff INHALATION Q6H PRN 07/28/21 07/28/21 History aerosol inhaler Past Med/Surg History Medical History (Updated 07/28/21 @ 17:24 by Alex Sandra MD) High cholesterol Hydrocele Seizure disorder (08/01/12) Superficial thrombophlebitis Surgical History No pertinent past surgical history Family History Mother Breast cancer Diabetes Hypertension Grandfather Myocardial infarction Other Colon cancer Family history non-contributory Denies family history of Ovarian cancer Prostate cancer Social History Smoking Status: Never smoker Do You Dip or Chew Tobacco: No; Hx Alcohol Use: No Hx Substance Use: No Preferred Language: Micronesian Communication Ability: Effective Visual Impairment: No Limitations Hearing Ability: Normal Sanitation Laborer Required: No Beliefs That Will Affect Care: None marital status: Current Living Situation: Spouse current occupational status: employed current occupation: Security Other Information That Helps Us Care for You: No Feels Safe at Home: Yes Safety Concerns: Feels Safe At This Time Childhood Exposure to Second-Hand Smoke: No Dental Care, Regularly: No Physical Activity Frequency: 3-4 Times per Week Seatbelt Use: always Sunscreen Use: Yes Assistive Devices: Contacts Review of Systems Review of Systems: All systems reviewed & are unremarkable except as noted in HPI & below Physical Exam Constitutional: WD/WN, vitals as above + morbidly obese; no acute distress Eyes: + anicteric sclerae; normal pupil size ENMT: external ear and nose normal, oropharynx normal Respiratory: normal respiratory effort; no respiratory distress Auscultation: + crackles (fine bibasal); no diminished lung sounds, no rales, no rhonchi and no wheezes Cardiovascular: RRR, no murmur, no edema Extremities: normal capillary refill; no calf tenderness Gastrointestinal (Abdomen): normal bowel sounds, soft, nontender, no hepatosplenomegaly Musculoskeletal: no cyanosis or clubbing, extremities motor strength 5/5 Skin: no rashes, warm and dry Neurologic: moves all extremities and awake; not confused Psychiatric: A+Ox3, euthymic affect Results & Data Results & Data ([facility]) Vital Signs (Past 12 Hours) Vital Signs Temp Pulse Pulse Resp BP BP Pulse Ox 07/28/21 16:35 98 H 28 H 137/81 95 07/28/21 16:00 84 26 H 130/81 91 07/28/21 15:47 86 18 131/82 91 07/28/21 15:00 93 07/28/21 14:34 37.2 C 96 H 28 H 146/90 H 91 Laboratory Results Abnormal lab results 07/28/21 07/28/21 Range/Units 15:04 15:04 [place] # (Auto) 0.88 H (0.11-0.59) K/uL Immature Gran # (Auto) 0.03 H (0.00-0.02) K/uL BUN 21 H (7-18) mg/dl BUN/Creatinine Ratio 20.4 H (10-20) C-Reactive Protein 4.55 H (0-0.29) mg/dl Albumin 2.8 L (3.4-5.0) gm/dl Globulin 4.4 H (2.5-4.0) gm/dl Albumin/Globulin Ratio 0.6 L (0.9-2) Diagnostic Findings CT angio chest PE protocol CT DOSE: 956.81 mGy.cm HISTORY: 46 years-old Male with Dyspnea, +covid. Acute shortness of breath. COVID Positive. TECHNIQUE: Multiple CTA images of the chest were obtained after the intravenous administration of Optiray. Coronal and sagittal MIPS were obtained from the axial data set and were submitted for review. All measurements were obtained according to NASCET criteria. A dose lowering technique was utilized adhering to the principles of ALARA. COMPARISON: Chest radiograph 08/17/2020, CTA chest 06/28/2017 FINDINGS: CTA: The heart is normal in size. There is no pericardial effusion. No thoracic aortic aneurysm or dissection. There is patency of the imaged great vessels. The segmental and subsegmental pulmonary arterial branches are not well evaluated secondary to contrast bolus timing. No central pulmonary emboli are identified. CT CHEST: No thyroid nodule. Prominent and mildly enlarged mediastinal and hilar lymph nodes measure up to 10 mm, likely reactive. Trace amount of pleural fluid at the lung bases. No pneumothorax. Patchy multifocal bilateral intermixed groundglass and consolidative opacities are noted within all lobes bilaterally. The central airways are patent. Small right tracheoesophageal recess tracheocele. No acute process of the imaged upper abdomen. Hepatosplenomegaly with hepatic steatosis. Tiny hiatal hernia. Unremarkable soft tissues. There is no acute fracture or suspicious bone lesion identified. IMPRESSION: 1. No pulmonary emboli identified. 2. Multifocal bilateral intermixed groundglass and consolidative opacities compatible with viral pneumonia. 3. Mild likely reactive mediastinal and hilar adenopathy. 4. Hepatosplenomegaly with hepatic steatosis. Medications Administered ER Medications Given: Dexamethasone 6mg IV ECG Indication: SOB/dyspnea Rate (beats per minute): 93 Rhythm: normal sinus Findings: + other (rightward axis) Comparison ECG Date: from (Oct 18, 2019) Change: no significant change Code Status & VTE Plan Code Status Full VTE Prophylaxis Plan VTE Prophylaxis will be ordered: Yes PG Care Time/CCT Total # of Minutes Spent Total Time Spent with Patient: Total time spent is greater than 50% in coordination of care (as documented) at patient's floor/unit and/or counseling patient: Coding Level of Care Code 83068 Initial Inpt Care Lvl 2 Diagnoses COVID-19 U07.1 Hypoxia R09.02
[2021-07-28] MEDS ORDERED: ONDANSETRON INJ 2 MG/ML 2 ML VIAL IV PRN (20:40)
[2021-07-28] MEDS ORDERED: ACETAMINOPHEN 325 MG TAB PO PRN (20:40)
[2021-07-28] MEDS ORDERED: ALUMINUM/MAGNESIUM SUSP 30 ML UDC PO PRN (20:40)
[2021-07-28] MEDS ORDERED: POLYETHYLENE (MIRALAX) 17 GM PACK PO PRN (20:40)
[2021-07-28] MEDS: ENOXAPARIN INJ 40 MG/0.4 ML SYR SQ SCH (23:25)
[2021-07-29 07:38] LABS: Basophils # (auto) 0.01 K/uL (0-0.2); Basophils % (auto) 0.1 %; Eosinophils # (auto) 0.01 K/uL (0-0.5); Eosinophils % (auto) 0.1 %; Hematocrit (blood only) 44.2 % (42-52); Hemoglobin 15.2 g/dL (14.0-18.0); Immature Granulocytes # (auto) 0.02 K/uL (0.00-0.02); Immature Granulocytes % (auto) 0.3 %; Lymphocytes # (auto) 1.01 K/uL (1.2-3.4); Lymphocytes % (auto) 14.7 %; Mean Corpuscular Hgb Conc 34.4 g/dL (32-36); Mean Platelet Volume 9.5 fL (7.4-10.4); Monocytes # (auto) 0.71 K/uL (0.11-0.59); Monocytes % (auto) 10.3 %; Neutrophils # (auto) 5.13 K/uL (1.4-6.5); Neutrophils % (auto) 74.5 %; Platelet Count 276 K/uL (130-400); RDW Coefficient of Variation 12.8 % (11.5-14.5); RDW Standard Deviation 42.1 fL (36.4-46.3); Red Blood Count 4.91 M/uL (4.7-6.1); White Blood Count 6.89 K/uL (4.8-10.8)
[2021-07-29 08:12] LABS: BUN Creatinine Ratio 21.6 (10-20); C Reactive Protein 6.5 mg/dl (0-0.29); Calcium 8.6 mg/dl (8.5-10.1); Creatinine Clr Calc Pharmacy 173.1 ml/min; Est GFR (African American) 121.1 ml/min; Est GFR (Non-African American) 104.5 ml/min; Potassium 3.9 mmol/L (3.5-5.1)
[2021-07-29] MEDS ORDERED: dexAMETHasone 6 MG in SYRINGE 0 ML IV SCH (09:00)
[2021-07-29] MEDS: ENOXAPARIN INJ 40 MG/0.4 ML SYR SQ SCH (09:16)
--- NOTE | 2021-07-29 14:21 | Discharge Summary ---
Date of Service July 29, 2021 Admission HPI Per Admitting Provider Chay Jha is a 46 year old male who works at a information security associate at [employer] who presents to the ER with shortness of breath on exertion. He has known COVID-19 (his mother just after thanksgiving here with COVID), currently on day 13 of his illness. He is unvaccinated due to prior severe adverse reaction to the influenza vaccination (required intubation and life-flight). He is very fatigued and short of breath on exertion. O2 sats in the ER 90-92% on room air but drop to mid 80s on exertion. His Maria Teresa works as an RN in the ER and helpful providing some of the history. His fever broke on Tuesday. Associated symptoms of loss of taste and smell, reduced appetite, nasal congestion improving. No diarrhea, chest or abdominal pain. Due to progressive symptoms he was prescribed prednisone and doxycycline 5 days ago (finished the prednisone yesterday). He has noticed no difference using albuterol prescribed. He has no history of COPD or asthma. In the ER he is currently maintaining sats 90-92% on room air at rest. CTA showing multifocal pneumonia with bilateral mixed groundglass and consolidative opacities compatible with viral pneumonia. In the hospital, he was on minimal oxygen,2L. Home eval was done which showed he was saturating 92% on room air. patient expressed a willingness to be discharged. he was discharged home today on PO Decadron for 10 days and also xareto, given his tendency for thrombosis Principal Diagnosis COVID 19 PNA Discharge Exam The patient is awake, alert and oriented 3, well developed and well nourished, normocephalic and atraumatic, lying in bed and in no acute distress. HEENT--PERRL, EOMI, mucous membranes and oropharynx mildly dry Neck--supple. No JVD. No bruits. Thyroid normal, trachea midline, no adenopathy. Heart--normal S1 and S2. No murmurs, rubs or gallops. Lungs--clear bilaterally, no respiratory distress, no accessory muscle use. Abdomen--normal bowel sounds and soft. Mild epigastric and left sided abdominal pain Extremities--no cyanosis or clubbing. No edema. Dermatologic--normal skin turgor, normal color, no abnormal lymph nodes, no rash. Neurologic--cranial nerves II through XII grossly intact. Rheumatologic--normal range of motion. Psychiatric--normal affect. Discharge Data Allergies Allergy/AdvReac Type Severity Reaction Status Date / Time phenytoin Allergy Intermediate Hives Verified 10/18/19 06:03 amoxicillin Allergy Mild Hives Verified 10/18/19 06:03 erythromycin base Allergy Unknown Hives Verified 10/18/19 06:03 Sulfa (Sulfonamide Allergy Unknown Hives Verified 10/18/19 06:03 Antibiotics) zonisamide Allergy Unknown Hives Verified 10/18/19 06:03 Consultations 07/28/21 16:58 ED Decision to Admit Stat Ordered Studies 07/28/21 14:53 CT angio chest PE protocol Stat Hospital Course (1) COVID-19: Unvaccinated (prior severe reaction to influenza vaccination). Day 13 of symptoms. Dexamethasone 6mg IV daily Outside window for remdesivir Does not qualify for baricitinib Prone as able Incentive spirometer *Given patient history of large superficial thrombophlebitis would consider Xarelto/Eliquis prophylaxis on discharge for VTE prophylaxis (2) Hypoxia: Secondary to COVID-19 pneumonia No respiratory distress Aim O2 sats > 90% VTE Prophylaxis - Lovenox 40mg SQ BID Diet - regular Disposition - admit to COVID isolation med/surg Total Time Total Time Spent Total Time Spent (In Minutes): 35 min Discharge Plan Discharge Items Patient Disposition: Home - Home Health Services Reason For Visit: SOB Discharge Diagnosis: COVID 19 PNA Condition on Discharge: Good Activity: Resume your previous activity Bathing: No limitations Non-emergency contact: Primary Care Provider Call non-emergency contact if: you have any medication questions and your symptoms worsen Follow-up/Referrals: Alyson Etienne PA-C [Primary Care Provider] - Diet: Regular Addtl Attending Provider Instructions: please make appointment to follow up with your PCP Pending Studies at Discharge: No Stand-Alone Forms: [employer], Smoking Cessation Medications and DC Order Prescriptions: New dexamethasone [Decadron] 6 mg tablet 6 mg PO DAILY Qty: 10 RF: 0 Xarelto 10 mg tablet 10 mg PO DAILY 35 Days Qty: 35 RF: 0 Continued albuterol sulfate 90 mcg/actuation HFA aerosol inhaler 2 puff INHALATION Q6H PRN (Reason: Shortness Of Breath) RF: 0 Discharge Orders: Discharge Order (Routine); Ordered 07/29/21 Ordered By: Guido Fuchs Admission Data Admit Date/Time: 07/28/21 17:34 Attending Provider: Guido Fuchs Admit Provider: Alex Sandra Primary Care Provider: Alyson Etienne Other Providers: Alex Sandra Coding Level of Care Code D/C DAY MANAGEMENT >30 MINS Diagnoses COVID-19 U07.1 Hypoxia R09.02
== END 2021-07-29 16:40 | disposition home or self-care (01) | DRG 177 ==
LOC: ED 14:26 → SUATTDRO 17:34 → EDINP 17:34 → 3W 20:38